=== PATIENT | female | born 1995 | race Caucasian/White ===

== ENCOUNTER 2016-12-17 02:45 | Emergency (ER) | payer MEDICAID ==
[~2016-12-17] VITALS: Ht 154.9 cm; Wt 104.3 kg
[~2016-12-17 02:45] MED LIST: BACTRIM DS 8001 TA1 PO; BENADRYL 25MG C25 MG PO; BENZONATATE100 MG PO; DICLEGIS1 TCP PO; FLINTSTONES1 CTB PO; HYDROCODONE/ACE1 TA5 PO; IBUPROFEN400 MG PO; KEFLEX 500MG.500 MG PO; LABETALOL 100M100 M1 PO; MEDROL 4MG. DOSE4 MG PO; NOMEDS; NOMEDS XX; PERCOCET 5/3251 EACH PO; PHENERGAN120 ML/BOT PO; PREDNISONE 20MG20 MG PO; TYLENOL ES500 MG PO; ZOFRAN4 MG PO; [UNRECOGNIZED DRUG - OTHER] PO
[2016-12-17 03:10] LABS: URINE BILIRUBIN - DIPSTICK NEGATIVE (NEG); URINE BLOOD TRACE-LYSED (NEG)
[2016-12-17 03:18] LABS: AMPHETAMINES/METAMPHETAMINES NEGATIVE ng/mL (<1000)
--- NOTE | 2016-12-17 03:29 | Emergency Room Report ---
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 PT STATES THAT IT STARTED A HEADACHE AND SHE HAD SOME BLURRED VISION AND SHE BECAME VERY ANXIOUS. PT STATES SHE HAS ALSO HAD SOME NAUSEA AND DIARRHEA. Onset of symptoms date/time:12/17/16 or onset unknown for: Treatment Prior to Arrival: PT TRANSPORTED TO ED BY EMS. 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 N Clinical Suspician of Infection? N Mental Status: 1 - Regular (Normal Baseline) Sepsis Risk:Low Sepsis Risk Have you (or family members/close friends) recently traveled outside the [place]? N If Yes, where/when: Have you had exposure to infectious disease within the past month? N TB? Other? Specify: Source patient, RN notes reviewed, EMS, old records Exam Limitations no limitations Comment pt with lt sided lyons with no fever which started this am with feeling of anxiety - no syncope or loc and no fever or neuro sx Cardiac Chest Pain Chest pain indicative of cardiac No Timing/Duration this evening Severity moderate ALLERGIES Coded Allergies: No Known Allergies (12/17/16) Home Medications Reported Medications No Known Home Medications History Medical History General CAD? No Angina: No [place]: No Hypertension? Yes Hyperlipidemia? No CHF? No DVT? No PE? No COPD? No Asthma? No Anemia? No GERD? No Gastric ulcers? No GI Bleed? No Hernia? No Thyroid Problems? No Hypothyroidism? No CVA? No Seizures? No Diabetes? No Renal Insuffiency? No End Stage Renal Disease? No UTI? No Stones? No BPH? No GB Disease: Yes Nephritic Syndrome? No Asplenia? No Hepatitis? No Sickle Cell Disease? No Arthritis? No Migraines? No Cataracts? No Glaucoma? No MRSA? No HIV? No TB? No Anxiety? No Depression? No Cancer? No More? 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 Respiratory denies cough, denies shortness of breath, denies wheezing Cardiovascular denies chest pain, denies syncope Gastrointestinal denies abdominal pain, denies diarrhea, denies vomiting Genitourinary denies: dysuria, frequency, hesitancy, hematuria. Musculoskeletal denies back pain, denies joint pain, denies joint swelling, denies neck pain Skin denies rash Psychiatric/Neurological denies headache, denies seizure Physical Exam Vital Signs Vital Signs Date Time Temp Pulse Resp B/P Pulse O2 O2 Flow FiO2 Ox Delivery Rate 12/17 0431 103 18 137/78 98 12/17 0342 106 18 106/68 100 12/17 0247 99.0 116 18 157/135 100 - WBC >12,000 or <4,000 or 10% bands? 2 or more SIRS Criteria Met? B/P:137/78 MAP:142 Creatinine >2.0? UA output<0.5ml/kg/hr for 2 hrs? Platelet count >100,000? Lactate >2.0mmol/1? INR >1.2 or PTT > than 60 sec? Evidence of Organ Dysfunction? Provider documented clinical suspician of infection? N Sepsis Criteria Count: 1 Sepsis Risk: Low Sepsis Risk General Appearance no apparent distress Eye Exam - bilateral eye PERRL, bilateral eye EOMI Ear, Nose, Throat normal ENT inspection Neck supple Respiratory Status No: respiratory distress. Lung Sounds bilateral: lungs clear. 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 No Results/Orders Laboratory Tests 12/17/16 0405: Sodium 140, Potassium 3.6, Chloride 104, Carbon Dioxide 27, BUN 14, Creatinine 0.8, Estimated Creat Clear 180, Estimated GFR (MDRD) 89, Glucose 112 H, Calcium 9.2, Total Bilirubin 0.1 L, AST 15, ALT 28, Alkaline Phosphatase 91, Creatine Kinase 59, CK-MB (CK-2) Rel Index 0.8, CK and CKMB Interp < 0.5, Troponin I < 0.02, Total Protein 8.0, Albumin 3.5, Globulin 4.5 H, Albumin/Globulin Ratio 0.8 L, WBC 13.0 H, RBC 4.68, Hgb 12.0 L, Hct 35.9 L, MCV 76.8 L, RDW 16.1, Plt Count 444 H, Gran % 76.4, Gran # 9.9 H, Lymphocytes % 19.3, Monocytes % 4.3, Lymphocytes # 2.5, Monocytes # 0.6, PUBS MCHC 33.4, MCH 25.6 L 12/17/16 0301: Opiates Screen NEGATIVE, Urine Methadone Screen NEGATIVE, Barbiturates NEGATIVE, Phencyclidine Screen NEGATIVE, Amphetamines Screen NEGATIVE, Benzodiazepines Screen NEGATIVE, Cocaine Screen NEGATIVE, Marijuana (THC) Screen NEGATIVE, Urine Color YELLOW, Urine Appearance CLEAR, Urine pH 6.0, Ur Specific [place] >= 1.030 , Urine Protein TRACE H, Urine Ketones NEGATIVE, Urine Blood TRACE-LYSED, Urine Nitrate NEGATIVE, Urine Bilirubin NEGATIVE, Urine Urobilinogen 0.2, Ur Leukocyte Esterase 2+ H, Urine RBC 3-5, Urine WBC 5-10, Amorphous Sediment OCC, Urine Bacteria 1+, Urine Mucus 1+, Urine Glucose NEGATIVE Current Medication Orders Sig/Fred Start time Last Medication Dose Route Stop Time Status Admin Sodium Chloride 1,000 ML .Q1H1M 12/17 0315 DC IV 12/17 0415 Sodium Chloride 10 ML PRN PRN 12/17 0315 AC IV 12/18 030 Sodium Chloride 1,000 ML .STK-MED ONE 12/17 030 DC IV Sodium Chloride 10 ML PRN PRN 12/17 0300 AC IV 12/18 255 Orders Procedure Date/time Status CULTURE, URINE 12/17 300 Active ELECTROCARDIOGRAM REQUEST 12/17 255 Active IV SALINE LOCK 12/17 255 Active URINALYSIS/COMPLETE 01/18 0256 Complete URINE 12/17 255 Complete DRUG ABUSE SCREEN (TRIAGE) 12/17 255 Complete CBC WITH AUTO DIFF 12/17 255 Complete CARDIAC ENZYMES 12/17 255 Complete CHEM 12 PROFILE 12/17 255 Complete 12 LEAD EKG-LALITHA (INITIAL) 12/17 UNK Active 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 ST/Twave chgs Departure Departure Time of Disposition 0641 Disposition DC Home or Self Care(routine) Clinical Impression Primary Impression: Headache Qualifiers: Headache type: unspecified Headache chronicity pattern: acute headache Intractability: not intractable Qualified Code: R51 - Headache Secondary Impressions: UTI (urinary tract infection) Qualifiers: Urinary tract infection type: acute cystitis Hematuria presence: without hematuria Qualified Code: N30.00 - Acute cystitis without hematuria Condition STABLE Referrals Raz Smith MD (Family) Patient Instructions DI for Urinary Tract Infection (UTI) Additional Instructions fluids and see pcp for follow up and call about urine culture Discharge Counseling Counseled pt/family regarding diagnosis, test results, medications/RX, follow up needs Prescriptions Current Visit Scripts Ciprofloxacin HCl (Cipro 500MG TAB) 500 MG PO BID #14 TAB ED Critical Care Critical Care No at 0702
--- NOTE | 2016-12-17 03:29 | Emergency Room Report ---
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 PT STATES THAT IT STARTED A HEADACHE AND SHE HAD SOME BLURRED VISION AND SHE BECAME VERY ANXIOUS. PT STATES SHE HAS ALSO HAD SOME NAUSEA AND DIARRHEA. Onset of symptoms date/time:12/17/16 or onset unknown for: Treatment Prior to Arrival: PT TRANSPORTED TO ED BY EMS. 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 N Clinical Suspician of Infection? N Mental Status: 1 - Regular (Normal Baseline) Sepsis Risk:Low Sepsis Risk Have you (or family members/close friends) recently traveled outside the [place]? N If Yes, where/when: Have you had exposure to infectious disease within the past month? N TB? Other? Specify: Source patient, RN notes reviewed, EMS, old records Exam Limitations no limitations Comment pt with lt sided lyons with no fever which started this am with feeling of anxiety - no syncope or loc and no fever or neuro sx Cardiac Chest Pain Chest pain indicative of cardiac No Timing/Duration this evening Severity moderate ALLERGIES Coded Allergies: No Known Allergies (12/17/16) Home Medications Reported Medications No Known Home Medications History Medical History General CAD? No Angina: No [place]: No Hypertension? Yes Hyperlipidemia? No CHF? No DVT? No PE? No COPD? No Asthma? No Anemia? No GERD? No Gastric ulcers? No GI Bleed? No Hernia? No Thyroid Problems? No Hypothyroidism? No CVA? No Seizures? No Diabetes? No Renal Insuffiency? No End Stage Renal Disease? No UTI? No Stones? No BPH? No GB Disease: Yes Nephritic Syndrome? No Asplenia? No Hepatitis? No Sickle Cell Disease? No Arthritis? No Migraines? No Cataracts? No Glaucoma? No MRSA? No HIV? No TB? No Anxiety? No Depression? No Cancer? No More? 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 Respiratory denies cough, denies shortness of breath, denies wheezing Cardiovascular denies chest pain, denies syncope Gastrointestinal denies abdominal pain, denies diarrhea, denies vomiting Genitourinary denies: dysuria, frequency, hesitancy, hematuria. Musculoskeletal denies back pain, denies joint pain, denies joint swelling, denies neck pain Skin denies rash Psychiatric/Neurological denies headache, denies seizure Physical Exam Vital Signs Vital Signs Date Time Temp Pulse Resp B/P Pulse O2 O2 Flow FiO2 Ox Delivery Rate 12/17 0431 103 18 137/78 98 12/17 0342 106 18 106/68 100 12/17 0247 99.0 116 18 157/135 100 - WBC >12,000 or <4,000 or 10% bands? 2 or more SIRS Criteria Met? B/P:137/78 MAP:142 Creatinine >2.0? UA output<0.5ml/kg/hr for 2 hrs? Platelet count >100,000? Lactate >2.0mmol/1? INR >1.2 or PTT > than 60 sec? Evidence of Organ Dysfunction? Provider documented clinical suspician of infection? N Sepsis Criteria Count: 1 Sepsis Risk: Low Sepsis Risk General Appearance no apparent distress Eye Exam - bilateral eye PERRL, bilateral eye EOMI Ear, Nose, Throat normal ENT inspection Neck supple Respiratory Status No: respiratory distress. Lung Sounds bilateral: lungs clear. 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 No Results/Orders Laboratory Tests 12/17/16 0405: Sodium 140, Potassium 3.6, Chloride 104, Carbon Dioxide 27, BUN 14, Creatinine 0.8, Estimated Creat Clear 180, Estimated GFR (MDRD) 89, Glucose 112 H, Calcium 9.2, Total Bilirubin 0.1 L, AST 15, ALT 28, Alkaline Phosphatase 91, Creatine Kinase 59, CK-MB (CK-2) Rel Index 0.8, CK and CKMB Interp < 0.5, Troponin I < 0.02, Total Protein 8.0, Albumin 3.5, Globulin 4.5 H, Albumin/Globulin Ratio 0.8 L, WBC 13.0 H, RBC 4.68, Hgb 12.0 L, Hct 35.9 L, MCV 76.8 L, RDW 16.1, Plt Count 444 H, Gran % 76.4, Gran # 9.9 H, Lymphocytes % 19.3, Monocytes % 4.3, Lymphocytes # 2.5, Monocytes # 0.6, PUBS MCHC 33.4, MCH 25.6 L 12/17/16 0301: Opiates Screen NEGATIVE, Urine Methadone Screen NEGATIVE, Barbiturates NEGATIVE, Phencyclidine Screen NEGATIVE, Amphetamines Screen NEGATIVE, Benzodiazepines Screen NEGATIVE, Cocaine Screen NEGATIVE, Marijuana (THC) Screen NEGATIVE, Urine Color YELLOW, Urine Appearance CLEAR, Urine pH 6.0, Ur Specific [place] >= 1.030 , Urine Protein TRACE H, Urine Ketones NEGATIVE, Urine Blood TRACE-LYSED, Urine Nitrate NEGATIVE, Urine Bilirubin NEGATIVE, Urine Urobilinogen 0.2, Ur Leukocyte Esterase 2+ H, Urine RBC 3-5, Urine WBC 5-10, Amorphous Sediment OCC, Urine Bacteria 1+, Urine Mucus 1+, Urine Glucose NEGATIVE Current Medication Orders Sig/Fred Start time Last Medication Dose Route Stop Time Status Admin Sodium Chloride 1,000 ML .Q1H1M 12/17 0315 DC IV 12/17 0415 Sodium Chloride 10 ML PRN PRN 12/17 0315 AC IV 12/18 030 Sodium Chloride 1,000 ML .STK-MED ONE 12/17 030 DC IV Sodium Chloride 10 ML PRN PRN 12/17 0300 AC IV 12/18 255 Orders Procedure Date/time Status CULTURE, URINE 12/17 300 Active ELECTROCARDIOGRAM REQUEST 12/17 255 Active IV SALINE LOCK 12/17 255 Active URINALYSIS/COMPLETE 01/18 0256 Complete URINE 12/17 255 Complete DRUG ABUSE SCREEN (TRIAGE) 12/17 255 Complete CBC WITH AUTO DIFF 12/17 255 Complete CARDIAC ENZYMES 12/17 255 Complete CHEM 12 PROFILE 12/17 255 Complete 12 LEAD EKG-LALITHA (INITIAL) 12/17 UNK Active 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 ST/Twave chgs Departure Departure Time of Disposition 0641 Disposition DC Home or Self Care(routine) Clinical Impression Primary Impression: Headache Qualifiers: Headache type: unspecified Headache chronicity pattern: acute headache Intractability: not intractable Qualified Code: R51 - Headache Secondary Impressions: UTI (urinary tract infection) Qualifiers: Urinary tract infection type: acute cystitis Hematuria presence: without hematuria Qualified Code: N30.00 - Acute cystitis without hematuria Condition STABLE Referrals Raz Smith MD (Family) Patient Instructions DI for Urinary Tract Infection (UTI) Additional Instructions fluids and see pcp for follow up and call about urine culture Discharge Counseling Counseled pt/family regarding diagnosis, test results, medications/RX, follow up needs Prescriptions Current Visit Scripts Ciprofloxacin HCl (Cipro 500MG TAB) 500 MG PO BID #14 TAB ED Critical Care Critical Care No at 0702
[2016-12-17 04:26] LABS: LYMPH # 2.5 K/mm3 (0.7-4.5); LYMPH % 19.3 % (10-50.0)
[2016-12-17 04:42] LABS: BUN 14 mg/dL (7-18); GFR (ESTIMATED) 89 ML/MIN (59-)
[2016-12-17] MEDS ORDERED: CIPRO 500MG TA500 MG PO (07:01)
[2016-12-17] MEDS ORDERED: KEFLEX 500MG.500 MG PO (07:13)
[2016-12-17 07:26] VITALS: BP 136/97
[2016-12-18] MEDS ORDERED: NEIGHBOR PO (04:58)
[2016-12-18] MEDS ORDERED: INDERAL20 MG PO (14:02)
== END 2016-12-17 07:37 | disposition home or self-care (01) ==
LOC: ER 02:45
PROVIDERS: Emergency Medicine
DX: R51 Headache (principal); N30.00 Acute cystitis without hematuria; R00.0 Tachycardia, unspecified; I10 Essential (primary) hypertension

== ENCOUNTER 2017-01-07 03:06 | Emergency (ER) | payer MEDICAID ==
[~2017-01-07] VITALS: Ht 154.9 cm; Wt 102.1 kg
[~2017-01-07 03:06] MED LIST changes: +CIPRO 500MG TA500 MG PO; +INDERAL20 MG PO; +NEIGHBOR PO
[2017-01-07 03:36] LABS: HEMOGLOBIN 12.5 g/dL (12.2-16.2); LYMPH # 3.6 K/mm3 (0.7-4.5); LYMPH % 30.4 % (10-50.0)
[2017-01-07 03:59] LABS: BUN 10 mg/dL (7-18)
[2017-01-07 04:00] LABS: GFR (ESTIMATED) 104 ML/MIN (59-)
--- NOTE | 2017-01-07 04:12 | Emergency Room Report ---
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 N Clinical Suspician of Infection? N Mental Status: 1 - Regular (Normal Baseline) Sepsis Risk:Low Sepsis Risk Have you (or family members/close friends) recently traveled outside the [place]? N If Yes, where/when: Have you had exposure to infectious disease within the past month? N TB? Other? Specify: Source patient, RN notes reviewed, EMS, old records Exam Limitations no limitations Comment rt sided chest pain with assoc feeling of sob and dizzyness - has had before and has seen card Cardiac Chest Pain Chest pain indicative of cardiac No Timing/Duration this evening Severity moderate ALLERGIES Coded Allergies: tuberculin, purified protein deriva (12/18/16) Home Medications Active Scripts Propranolol Hcl (Inderal) 20 MG PO BID #60 TAB Prov: 12/18/16 Reported Medications Ibuprofen 200 MG PO Q6HP PRN PAIN History Medical History General CAD? No Angina: No [place]: No Hypertension? Yes Hyperlipidemia? No CHF? No DVT? No PE? No COPD? No Asthma? No Anemia? No GERD? No Gastric ulcers? No GI Bleed? No Hernia? No Thyroid Problems? No Hypothyroidism? No CVA? No Seizures? No Diabetes? No Renal Insuffiency? No End Stage Renal Disease? No UTI? No Stones? No BPH? No GB Disease: Yes Nephritic Syndrome? No Asplenia? No Hepatitis? No Sickle Cell Disease? No Arthritis? No Migraines? No Cataracts? No Glaucoma? No MRSA? No HIV? No TB? No Anxiety? No Depression? No Cancer? No More? 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 Respiratory see HPI, denies cough, shortness of breath, denies wheezing Cardiovascular see HPI, chest pain, denies palpitations, denies syncope Gastrointestinal denies abdominal pain, denies nausea, denies vomiting Genitourinary denies: dysuria, frequency, hesitancy, hematuria. Musculoskeletal denies back pain, denies joint pain, denies joint swelling, denies neck pain Skin denies rash Psychiatric/Neurological denies headache, denies seizure Physical Exam Vital Signs Vital Signs Date Time Temp Pulse Resp B/P Pulse O2 O2 Flow FiO2 Ox Delivery Rate 01/07 0444 59 16 136/70 97 01/07 0406 98.7 58 16 121/72 97 01/07 0307 98.7 61 16 149/106 99 - WBC >12,000 or <4,000 or 10% bands? 2 or more SIRS Criteria Met? B/P:121/72 MAP:120 Creatinine >2.0? UA output<0.5ml/kg/hr for 2 hrs? Platelet count >100,000? Lactate >2.0mmol/1? INR >1.2 or PTT > than 60 sec? Evidence of Organ Dysfunction? Provider documented clinical suspician of infection? N Sepsis Criteria Count: 0 Sepsis Risk: Low Sepsis Risk General Appearance no apparent distress Eye Exam - bilateral eye PERRL, bilateral eye EOMI Ear, Nose, Throat normal ENT inspection Neck supple Respiratory Status No: respiratory distress. Lung Sounds bilateral: lungs clear. 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 No Results/Orders Laboratory Tests 01/07/17 0325: Sodium 140, Potassium 3.3 L, Chloride 106, Carbon Dioxide 20 L, BUN 10, Creatinine 0.7, Estimated Creat Clear 201 H, Estimated GFR (MDRD) 104, Glucose 105, Calcium 8.8, Total Bilirubin 0.3, AST 23, ALT 37, Alkaline Phosphatase 94, Creatine Kinase 54, CK-MB (CK-2) Rel Index 0.9, CK and CKMB Interp < 0.5, Troponin I < 0.02, Total Protein 7.5, Albumin 3.4, Globulin 4.1 H, Albumin/ Globulin Ratio 0.8 L, WBC 11.9 H, RBC 4.53, Hgb 12.5, Hct 35.0 L, MCV 77.3 L , RDW 14.3, Plt Count 476 H, MPV 6.1 L, Gran % 60.9, Gran # 7.3, Lymphocytes % 30.4, Monocytes % 6.1, Eosinophils % 2.3, Basophils % 0.3, Lymphocytes # 3.6, Monocytes # 0.7, Eosinophils # 0.3, Basophils # 0.0, PUBS MCHC 35.7 H, MCH 27.6 Current Medication Orders Sig/Fred Start time Last Medication Dose Route Stop Time Status Admin Sodium Chloride 10 ML PRN PRN 01/07 330 AC IV 01/08 316 Orders Procedure Date/time Status ELECTROCARDIOGRAM REQUEST 01/07 319 Active CHEST-PORTABLE 01/07 319 Active IV SALINE LOCK 01/07 319 Active CBC WITH AUTO DIFF 01/07 319 Complete CARDIAC ENZYMES 01/07 319 Complete CHEM 12 PROFILE 01/07 319 Complete 12 LEAD EKG-LALITHA (INITIAL) 01/07 UNK Active 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 of ischemic chgs XRAY/CT/US XRAY/CT/US XRAY chest XR interpretation by reviewed by me Xray Results normal/NAD Departure Departure Time of Disposition 433 Disposition DC Home or Self Care(routine) Clinical Impression Primary Impression: Chest pain Qualifiers: Chest pain type: unspecified Qualified Code: R07.9 - Chest pain, unspecified Condition STABLE Referrals Abiel Jose (Family) Patient Instructions DI for Atypical Chest Pain Additional Instructions see pcp for follow up Discharge Counseling Counseled pt/family regarding diagnosis, test results, follow up needs ED Critical Care Critical Care No at 0458
--- NOTE | 2017-01-07 04:12 | Emergency Room Report ---
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 N Clinical Suspician of Infection? N Mental Status: 1 - Regular (Normal Baseline) Sepsis Risk:Low Sepsis Risk Have you (or family members/close friends) recently traveled outside the [place]? N If Yes, where/when: Have you had exposure to infectious disease within the past month? N TB? Other? Specify: Source patient, RN notes reviewed, EMS, old records Exam Limitations no limitations Comment rt sided chest pain with assoc feeling of sob and dizzyness - has had before and has seen card Cardiac Chest Pain Chest pain indicative of cardiac No Timing/Duration this evening Severity moderate ALLERGIES Coded Allergies: tuberculin, purified protein deriva (12/18/16) Home Medications Active Scripts Propranolol Hcl (Inderal) 20 MG PO BID #60 TAB Prov: 12/18/16 Reported Medications Ibuprofen 200 MG PO Q6HP PRN PAIN History Medical History General CAD? No Angina: No [place]: No Hypertension? Yes Hyperlipidemia? No CHF? No DVT? No PE? No COPD? No Asthma? No Anemia? No GERD? No Gastric ulcers? No GI Bleed? No Hernia? No Thyroid Problems? No Hypothyroidism? No CVA? No Seizures? No Diabetes? No Renal Insuffiency? No End Stage Renal Disease? No UTI? No Stones? No BPH? No GB Disease: Yes Nephritic Syndrome? No Asplenia? No Hepatitis? No Sickle Cell Disease? No Arthritis? No Migraines? No Cataracts? No Glaucoma? No MRSA? No HIV? No TB? No Anxiety? No Depression? No Cancer? No More? 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 Respiratory see HPI, denies cough, shortness of breath, denies wheezing Cardiovascular see HPI, chest pain, denies palpitations, denies syncope Gastrointestinal denies abdominal pain, denies nausea, denies vomiting Genitourinary denies: dysuria, frequency, hesitancy, hematuria. Musculoskeletal denies back pain, denies joint pain, denies joint swelling, denies neck pain Skin denies rash Psychiatric/Neurological denies headache, denies seizure Physical Exam Vital Signs Vital Signs Date Time Temp Pulse Resp B/P Pulse O2 O2 Flow FiO2 Ox Delivery Rate 01/07 0444 59 16 136/70 97 01/07 0406 98.7 58 16 121/72 97 01/07 0307 98.7 61 16 149/106 99 - WBC >12,000 or <4,000 or 10% bands? 2 or more SIRS Criteria Met? B/P:121/72 MAP:120 Creatinine >2.0? UA output<0.5ml/kg/hr for 2 hrs? Platelet count >100,000? Lactate >2.0mmol/1? INR >1.2 or PTT > than 60 sec? Evidence of Organ Dysfunction? Provider documented clinical suspician of infection? N Sepsis Criteria Count: 0 Sepsis Risk: Low Sepsis Risk General Appearance no apparent distress Eye Exam - bilateral eye PERRL, bilateral eye EOMI Ear, Nose, Throat normal ENT inspection Neck supple Respiratory Status No: respiratory distress. Lung Sounds bilateral: lungs clear. 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 No Results/Orders Laboratory Tests 01/07/17 0325: Sodium 140, Potassium 3.3 L, Chloride 106, Carbon Dioxide 20 L, BUN 10, Creatinine 0.7, Estimated Creat Clear 201 H, Estimated GFR (MDRD) 104, Glucose 105, Calcium 8.8, Total Bilirubin 0.3, AST 23, ALT 37, Alkaline Phosphatase 94, Creatine Kinase 54, CK-MB (CK-2) Rel Index 0.9, CK and CKMB Interp < 0.5, Troponin I < 0.02, Total Protein 7.5, Albumin 3.4, Globulin 4.1 H, Albumin/ Globulin Ratio 0.8 L, WBC 11.9 H, RBC 4.53, Hgb 12.5, Hct 35.0 L, MCV 77.3 L , RDW 14.3, Plt Count 476 H, MPV 6.1 L, Gran % 60.9, Gran # 7.3, Lymphocytes % 30.4, Monocytes % 6.1, Eosinophils % 2.3, Basophils % 0.3, Lymphocytes # 3.6, Monocytes # 0.7, Eosinophils # 0.3, Basophils # 0.0, PUBS MCHC 35.7 H, MCH 27.6 Current Medication Orders Sig/Fred Start time Last Medication Dose Route Stop Time Status Admin Sodium Chloride 10 ML PRN PRN 01/07 330 AC IV 01/08 316 Orders Procedure Date/time Status ELECTROCARDIOGRAM REQUEST 01/07 319 Active CHEST-PORTABLE 01/07 319 Active IV SALINE LOCK 01/07 319 Active CBC WITH AUTO DIFF 01/07 319 Complete CARDIAC ENZYMES 01/07 319 Complete CHEM 12 PROFILE 01/07 319 Complete 12 LEAD EKG-LALITHA (INITIAL) 01/07 UNK Active CM/EKG CM/photo 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 of ischemic chgs XRAY/CT/US XRAY/CT/US XRAY chest XR interpretation by reviewed by me Xray Results normal/NAD Departure Departure Time of Disposition 433 Disposition DC Home or Self Care(routine) Clinical Impression Primary Impression: Chest pain Qualifiers: Chest pain type: unspecified Qualified Code: R07.9 - Chest pain, unspecified Condition STABLE Referrals Abiel Jose (Family) Patient Instructions DI for Atypical Chest Pain Additional Instructions see pcp for follow up Discharge Counseling Counseled pt/family regarding diagnosis, test results, follow up needs ED Critical Care Critical Care No at 0454
[2017-01-07 05:24] VITALS: BP 136/70
--- NOTE | 2017-01-07 08:04 | RADIOLOGY REPORT PS360 ---
CHEST-PORTABLE HISTORY: Chest pain CP ORDERING PHYSICIAN: Bj Alarcon MD PATIENT AGE: 21 years COMPARISON: 12/18/2016 FINDINGS: The cardiomediastinal silhouette and pulmonary vascularity are within normal limits. The lungs are clear without infiltrates, suspicious nodules, or pleural effusions. No acute bony abnormalities. IMPRESSION: Negative chest, no acute finding
== END 2017-01-07 05:24 | disposition home or self-care (01) ==
LOC: ER 03:06
PROVIDERS: Emergency Medicine
DX: R07.9 Chest pain, unspecified (principal)

== ENCOUNTER → 2017-01-13 | Outpatient (CLI) | payer MEDICAID ==
--- NOTE | 2017-01-13 12:16 | RADIOLOGY REPORT PS360 ---
CTA-CHEST HISTORY: PALPITATIONS,HTN,DYSPNEA,ABN. EKG,R/O PE ORDERING PHYSICIAN: Bam Mayo MD PATIENT AGE: 21 years TECHNIQUE: Helical acquisition obtained following the bolus administration of 60 mL of Isovue 370 followed by a saline bolus. Axial, sagittal, and coronal reformatted images are generated and reviewed. COMPARISON: None FINDINGS: No evidence of aortic aneurysm or dissection. No pulmonary embolus apparent. There is a calcified granuloma in the right upper lobe. A 3 mm nodules present in the subpleural region in the right upper lobe laterally no lobar consolidation or collapse. No effusions. Upper abdominal images are unremarkable. IMPRESSION: 1. No evidence of aortic aneurysm or pulmonary embolus. 2. No acute finding. 3. Calcified granuloma right upper lobe with a noncalcified 3 mm subpleural nodular density in the right upper lobe as well.
== END ==
LOC: RAD 10:30
DX: R00.2 Palpitations (principal); R06.00 Dyspnea, unspecified; R94.31 Abnormal electrocardiogram [ECG] [EKG]; I10 Essential (primary) hypertension
CPT/HCPCS: Q9967

== ENCOUNTER 2017-01-19 09:00 | Outpatient (CLI) | payer MEDICAID | END 2017-01-19 09:30 | disposition home or self-care (01) | LOC: COP 09:00 | DX: Z45.2 Encounter for adjustment and management of vascular access device (principal) ==

== ENCOUNTER 2017-10-23 00:39 | Emergency (ER) | payer MEDICAID ==
[~2017-10-23] VITALS: Ht 154.9 cm; Wt 113.4 kg
[2017-10-23] MEDS ORDERED: QVAR8.7 G1 IH (01:00)
[2017-10-23] MEDS ORDERED: SUNMARK OMEPRAZ20 MG PO (01:01)
[2017-10-23] MEDS ORDERED: ZOLOFT25 MG PO (01:02)
[2017-10-23] MEDS ORDERED: ZYRTEC10 M2 PO (01:02)
[2017-10-23] MEDS ORDERED: SINGULAIR10 MG PO (01:03)
--- NOTE | 2017-10-23 01:07 | Emergency Room Report ---
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 Y Clinical Suspician of Infection? N Mental Status: 1 - Regular (Normal Baseline) Sepsis Risk:Low Sepsis Risk Have you (or family members/close friends) recently traveled outside the [place]? N If Yes, where/when: Have you had exposure to infectious disease within the past month? N TB? Other? Specify: Source patient, RN notes reviewed, old records Exam Limitations no limitations Comment rash on hands/feet over the last few days with no fever but has local irritation Cardiac Chest Pain Chest pain indicative of cardiac No Timing/Duration this evening Severity moderate ALLERGIES Coded Allergies: Mushroom (Severe, [id number]/THROAT 10/23/17) mold (Intermediate, 10/23/17) tuberculin, purified protein deriva (12/18/16) Home Medications Active Scripts Propranolol Hcl (Inderal) 20 MG PO BID #60 TAB Prov: 12/18/16 Reported Medications Ibuprofen 200 MG PO Q6HP PRN PAIN Beclomethasone Dipropionate (QVAR) 8.7 GM IH BID Omeprazole 20 MG PO DAILY Sertraline Hcl (Zoloft 25MG) 25 MG PO DAILY History Medical History General CAD? No Angina: No [place]: No Hypertension? Yes Hyperlipidemia? No CHF? No DVT? No PE? No COPD? No Asthma? Yes Anemia? No GERD? No Gastric ulcers? No GI Bleed? No Hernia? No Thyroid Problems? No Hypothyroidism? No CVA? No Seizures? No Diabetes? No Renal Insuffiency? No End Stage Renal Disease? No UTI? No Stones? No BPH? No GB Disease: Yes Nephritic Syndrome? No Asplenia? No Hepatitis? No Sickle Cell Disease? No Arthritis? No Migraines? No Cataracts? No Glaucoma? No MRSA? No HIV? No TB? No Anxiety? No Depression? No Cancer? No More? 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 Respiratory denies cough, denies shortness of breath, denies wheezing Cardiovascular denies chest pain, denies palpitations, denies syncope Gastrointestinal denies abdominal pain, denies diarrhea, denies vomiting Genitourinary denies: dysuria, frequency, hesitancy, hematuria. Musculoskeletal denies back pain, denies joint pain, denies joint swelling, denies neck pain Skin see HPI, rash Psychiatric/Neurological denies headache, denies seizure Physical Exam Vital Signs Vital Signs Date Time Temp Pulse Resp B/P Pulse O2 O2 Flow FiO2 Ox Delivery Rate 10/23 0050 98.0 77 18 98 10/23 0049 98.0 84 14 99 - WBC >12,000 or <4,000 or 10% bands? 2 or more SIRS Criteria Met? B/P:124/ MAP:100 Creatinine >2.0? UA output<0.5ml/kg/hr for 2 hrs? Platelet count >100,000? Lactate >2.0mmol/1? INR >1.2 or PTT > than 60 sec? Evidence of Organ Dysfunction? Provider documented clinical suspician of infection? N Sepsis Criteria Count: 1 Sepsis Risk: Low Sepsis Risk General Appearance no apparent distress Eye Exam - bilateral eye PERRL, bilateral eye EOMI Ear, Nose, Throat normal ENT inspection Neck non-tender Respiratory Status No: respiratory distress. 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 No Departure Departure Time of Disposition 0102 Disposition DC Home or Self Care(routine) Clinical Impression Primary Impression: Hand, foot and mouth disease Condition STABLE Patient Instructions DI for Hand, Foot, and Mouth Disease-Child Additional Instructions advil/tyenol and see pcp as needed for follow up Discharge Counseling Counseled pt/family regarding diagnosis, follow up needs ED Critical Care Critical Care No at 0100
--- NOTE | 2017-10-23 01:07 | Emergency Room Report ---
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 Y Clinical Suspician of Infection? N Mental Status: 1 - Regular (Normal Baseline) Sepsis Risk:Low Sepsis Risk Have you (or family members/close friends) recently traveled outside the [place]? N If Yes, where/when: Have you had exposure to infectious disease within the past month? N TB? Other? Specify: Source patient, RN notes reviewed, old records Exam Limitations no limitations Comment rash on hands/feet over the last few days with no fever but has local irritation Cardiac Chest Pain Chest pain indicative of cardiac No Timing/Duration this evening Severity moderate ALLERGIES Coded Allergies: Mushroom (Severe, O-[id number]/THROAT 10/23/17) mold (Intermediate, 10/23/17) tuberculin, purified protein deriva (12/18/16) Home Medications Active Scripts Propranolol Hcl (Inderal) 20 MG PO BID #60 TAB Prov: 12/18/16 Reported Medications Ibuprofen 200 MG PO Q6HP PRN PAIN Beclomethasone Dipropionate (QVAR) 8.7 GM IH BID Omeprazole 20 MG PO DAILY Sertraline Hcl (Zoloft 25MG) 25 MG PO DAILY History Medical History General CAD? No Angina: No [place]: No Hypertension? Yes Hyperlipidemia? No CHF? No DVT? No PE? No COPD? No Asthma? Yes Anemia? No GERD? No Gastric ulcers? No GI Bleed? No Hernia? No Thyroid Problems? No Hypothyroidism? No CVA? No Seizures? No Diabetes? No Renal Insuffiency? No End Stage Renal Disease? No UTI? No Stones? No BPH? No GB Disease: Yes Nephritic Syndrome? No Asplenia? No Hepatitis? No Sickle Cell Disease? No Arthritis? No Migraines? No Cataracts? No Glaucoma? No MRSA? No HIV? No TB? No Anxiety? No Depression? No Cancer? No More? 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 Respiratory denies cough, denies shortness of breath, denies wheezing Cardiovascular denies chest pain, denies palpitations, denies syncope Gastrointestinal denies abdominal pain, denies diarrhea, denies vomiting Genitourinary denies: dysuria, frequency, hesitancy, hematuria. Musculoskeletal denies back pain, denies joint pain, denies joint swelling, denies neck pain Skin see HPI, rash Psychiatric/Neurological denies headache, denies seizure Physical Exam Vital Signs Vital Signs Date Time Temp Pulse Resp B/P Pulse O2 O2 Flow FiO2 Ox Delivery Rate 10/23 0050 98.0 77 18 98 10/23 0049 98.0 84 14 99 - WBC >12,000 or <4,000 or 10% bands? 2 or more SIRS Criteria Met? B/P:124/ MAP:100 Creatinine >2.0? UA output<0.5ml/kg/hr for 2 hrs? Platelet count >100,000? Lactate >2.0mmol/1? INR >1.2 or PTT > than 60 sec? Evidence of Organ Dysfunction? Provider documented clinical suspician of infection? N Sepsis Criteria Count: 1 Sepsis Risk: Low Sepsis Risk General Appearance no apparent distress Eye Exam - bilateral eye PERRL, bilateral eye EOMI Ear, Nose, Throat normal ENT inspection Neck non-tender Respiratory Status No: respiratory distress. 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 No Departure Departure Time of Disposition 0102 Disposition DC Home or Self Care(routine) Clinical Impression Primary Impression: Hand, foot and mouth disease Condition STABLE Patient Instructions DI for Hand, Foot, and Mouth Disease-Child Additional Instructions advil/tyenol and see pcp as needed for follow up Discharge Counseling Counseled pt/family regarding diagnosis, follow up needs ED Critical Care Critical Care No at 0105
--- OUTSIDE RECORDS SUMMARY | 2017-10-23 01:08 | External Medical Summary Rpt | CCD ---
Author Author , DANIEL Organization DANIEL Address Unknown Phone Care Team Providers Care Vp Production Name Role Phone [facility] Unavailable Unavailable [place] CARSON BYRD Unavailable Unavailable web care [employer], Unavailable Unavailable [facility] Unavailable Unavailable SERVICE, [facility] UYEN GOODMAN Unavailable Unavailable KAITLIN RIVAS ANGIE, Unavailable Unavailable RIVAS ANGIE [place] Unavailable [facility]available [facility] Davon Quevedo MD, Unavailable Unavailable Davon NICOLAS, Unavailable Unavailable GHASSAN NICOLAS [facility] [place], Unavailable Unavailable PLLC, [facility] [place] Unavailable Unavailable HOSPITA, [facility]ITA HARPEL ZAIN, HARPEL Unavailable Unavailable ZAIN [facility] Unavailable Unavailable INC, [facility] Unavailable [facility]available HOSPITAL P, [facility] Unavailable Unavailable [facility], Unavailable Unavailable [facility] SWAPNA FERRELL MD, Unavailable Unavailable SWAPNA FERRELL MD [facility] Unavailable Unavailable GROUP PS, [facility] Unavailable Unavailable [facility], [facility], [facility]available Unavailable [facility], Unavailable Unavailable [facility], Unavailable Unavailable PLL[facility], [facility] Unavailable Unavailable LAB, [facility] OSIRIS REMY, OSIRIS REMY Unavailable Unavailable EVELYN TOD, EVELYN TOD Unavailable Unavailable [facility], [facility], Unavailable Unavailable [facility], Unavailable Unavailable RIC Garner Unavailable Unavailable Curt POND MD, III, MD [facility] Unavailable Unavailable [facility] [place], [facility] [place] Purpose Continuity of Care Document - 11-05-2011 through 2016 Problems Code Diagnosis DOS Provider Status J301 ALLERGIC 08-04-2017 [facility]IS [facility] DUE TO [place] POLLEN J3089 OTHER 08-04-2017 [facility] [place] J339 NASAL POLYP 08-04-2017 [facility] UNSPECIFIED [place] J4540 MODERATE 08-04-2017 [facility]SISTENT [facility] ASTHMA [place] UNCOMPLICAT ED K219 GASTRO-ESOP 08-04-2017 [facility] H REFLUX [facility] OF DISEASE [place] WITHOUT ESOPHAGITIS E585IQJ OTHER 08-04-2017 [facility] ADVERSE [facility] FOOD [place] REACTIONS NEC INITIAL ENCNTR N80596 ALLERGY TO 08-04-2017 [facility] OTHER FOODS PARTNERS [facility] [place] J029 ACUTE 06-29-2017 [facility] PHARYNGITIS PHYSICIAN GROUP UNSPECIFIED O16194 UNSPECIFIED 06-01-2017 [place] [facility] UNCOMPLICAT GROUP PS ED R109 UNSPECIFIED 06-01-2017 [place] ABDOMINAL ANESTHESIA PAIN GROUP PS R10.84 GENERALIZED 05-27-2017 ABDOMINAL PAIN M5386 OTHER 05-12-2017 [place] SPECIFIED [facility] DORSOPATHIE C CENTE S LUMBAR REGION M5413 RADICULOPAT 05-12-2017 [place] HY [facility] CERVICOTHOR C CENTE ACIC REGION M9906 SEGMENTAL & 05-12-2017 [place] [facility] DYSFUNCTION C CENTE LOWER EXTREMITY I10 ESSENTIAL 05-11-2017 [place] [facility] HYPERTENSIO N I499 CARDIAC 05-11-2017 [place] [facility] UNSPECIFIED J309 ALLERGIC 05-11-2017 [place] [facility] UNSPECIFIED J4520 MILD 05-11-2017 [place] [facility]EN [facility] T ASTHMA UNCOMPLICAT ED K649 UNSPECIFIED 05-11-2017 [facility] [facility] HEMORRHOIDS L509 URTICARIA 05-11-2017 [place] [facility]PEC[facility]IED [facility] R918 OTHER 05-05-2017 [facility] NONSPECIFIC PARTNERS OF ABNORMAL [place] FINDING OF LUNG FIELD R0602 SHORTNESS 04-07-2017 [place] [facility] BRE[facility] SERV [facility] R079 CHEST PAIN 04-07-2017 [place] [facility] U[facility]PEC[facility] SERV [facility] R1012 LEFT UPPER 03-20-2017 [facility]ANT PHYSICIAN PAIN GROUP R319 HEMATURIA 03-20-2017 [facility] UNSPECIFIED PHYSICIAN GROUP M549 DORSALGIA 03-18-2017 [place] UNSPECIFIED CHIROPRACTI C CENTE M9901 SEGMENTAL & 03-18-2017 [place] SOMATIC [facility] DYSFUNCTION C CENTE CERVICAL REGION M9905 SEGMENTAL & 03-18-2017 [place] [facility] DYSFUNCTION C CENTE OF PELVIC REGION K92.1 MELENA 03-10-2017 R05 COUGH 03-10-2017 R06.02 SHORTNESS 03-10-2017 OF BREATH R07.89 OTHER CHEST 03-10-2017 PAIN I49.9 CARDIAC 03-05-2017 ARRHYTHMIA, UNSPECIFIED F86639 OTHER 03-02-2017 [facility] [employer] [facility] K921 MELENA 02-28-2017 [facility]OS[facility]ITA R05 COUGH 02-28-2017 [facility]OS[facility] R0789 OTHER CHEST 02-28-2017 [facility] R195 OTHER FECAL 02-28-2017 [facility] N EMERGENCY ABNORMALITI SERVI ES L298 OTHER 02-17-2017 [facility] PRURITUS [place] L308 OTHER 02-17-2017 [facility] SPECIFIED [place], [facility] Z452 ENCOUNTER 01-26-2017 [facility] ADJUSTMENT& [facility] MGMT INC VASCULAR ACCESS DEVICE Z4800 ENCOUNTER 01-26-2017 [facility] CHANGE/RADU [facility] SUNIL NONSURG INC WOUND DRESSING T5925IL ALLERGY 01-14-2017 [facility] UNSPECIFIED INITIAL ENCOUNTER E6609 OTHER 01-13-2017 [facility] OBESITY DUE [facility] TO EXCESS INC CALORIES E669 OBESITY 01-13-2017 [facility] UNSPECIFIED PHYSICIANS GROUP R002 PALPITATION 01-13-2017 [place] S [facility] ASS R0600 DYSPNEA 01-13-2017 [place] UNSPECIFIED MEDICAL IMAGING ASS R9431 ABNORMAL 01-13-2017 [facility] ELECTROCARD [facility] IOGRAM INC O169 UNSPECIFIED 01-02-2017 [facility] MATERNAL PHYSICIANS HYPERTENSIO GROUP N UNS TRIMESTER F93505 ENCOUNTER 12-31-2016 [facility] REMOVAL SERV INTRAUTERIN FOUNDATION E CONTRACEPT DEVICE H538 OTHER 12-18-2016 [place] VISUAL [facility] DISTURBANCE IMAGING ASS S R112 NAUSEA WITH 12-18-2016 [facility] UNSPECIFIED SERVICE R42 DIZZINESS 12-18-2016 [facility] AND SERV GIDDINESS FOUNDATION R51 HEADACHE 12-18-2016 [facility] N3000 ACUTE 12-17-2016 [facility] CYSTITIS [facility]ANS, WITHOUT PLLC HEMATURIA N390 URINARY 12-17-2016 [facility] TRACT PHYSICIANS, INFECTION PLLC SITE NOT SPECIFIED R000 TACHYCARDIA 12-17-2016 [facility]PITAL P J02618 ENCOUNTER 10-16-2016 [facility] ROUTINE SERV CHECKING IU FOUNDATION CONTRACEPT DEVICE R07385 SUPERVISION 08-09-2016 [facility] OTH HIGH SERV RISK PREG FOUNDATION THIRD TRIMESTER O133 GESTATIONAL 08-09-2016 [facility] HTN W/O SERV SIG FOUNDATION PROTEINURIA THIRD TRI O80 ENCOUNTER 08-09-2016 [place] FOR ANESTHESIA FULL-TERM GROUP PS UNCOMPLICAT ED DELIVERY Z370 SINGLE LIVE 08-09-2016 [facility] SERV [facility] Z3A38 38 WEEKS 08-09-2016 [facility] GESTATION SERV OF FOUNDATION M80102 SUPERVISION 08-08-2016 [facility] OTH HIGH SERV RISK PREG FOUNDATION UNS TRIMESTER O4703 FALSE LABOR 07-29-2016 [facility] BEFORE 37 SERV CMPLETE FOUNDATION WEEKS GEST 3RD TRI Z3A36 36 WEEKS 07-29-2016 [facility] GESTATION SERV OF FOUNDATION O0990 SUPERVISION 07-24-2016 [facility] PREG UNS UNS TRIMESTER Z36 ENCOUNTER 07-24-2016 [facility] SCREENING OF MOTHER L09074 OTHER SPEC 07-10-2016 [facility] SERV RELATED FOUNDATION COND 3RD TRIMESTER R102 PELVIC AND 07-10-2016 [facility] PERINEAL SERV PAIN FOUNDATION Z3A33 33 WEEKS 07-10-2016 [place] [facility] GESTATION SERV OF FOUNDATION R28814 PRE-EXISTIN 06-23-2016 [facility]ICAL G ESSENTIAL SERV HTN COMP FOUNDATION PREG THIRD TRI Z3A31 31 WEEKS 06-23-2016 [place] [facility] GESTATION SERV OF FOUNDATION Z3480 ENC 06-17-2016 [facility] SUPERVISION PHYSICIANS OTH NORMAL GROUP PREG UNS TRIMESTER Z3A29 29 WEEKS 06-11-2016 [facility] COMM[facility]Y OF HOSPITA A49876 ABNORMAL 05-26-2016 [facility] GLUCOSE PHYSICIANS COMPLICATIN GROUP G B04957 OTHER SPEC 05-12-2016 [facility] SERV RELATED FOUNDATION COND 2ND TRIMESTER R030 ELEVATED 05-12-2016 [place] [facility] BLOOD-PRESS SERV URE READING FOUNDATION WITHOUT DX HTN Z3A25 25 WEEKS 05-12-2016 [place] [facility] GE[place] SERV OF FOUNDATION Z3492 ENC 04-10-2016 [facility] MEDICAL NORMAL IMAGING ASS UNS 2 TRIMESTER Z3A20 20 WEEKS 04-10-2016 [place] GESTATION MEDICAL OF IMAGING ASS N93272 CELLULITIS 03-20-2016 [facility] OF LEFT PHYSICIANS UPPER LIMB GROUP W05255Q INSECT BITE 02-11-2016 [facility] PHYSICIANS NONVENOMOUS GROUP LT UPPER ARM INITIAL ENC M40PDFX BIT/STUNG 02-11-2016 [facility] NONVENOM PHYSICIANS INSECT OTH GROUP ARTHROPOD INIT ENC Z40624 SPOTTING 01-15-2016 [facility] COMPLICATIN [facility] G INC FIRST TRIMESTER Z3201 ENCOUNTER 01-02-2016 [facility] FOR PHYSICIANS GROUP TEST RESULT POSITIVE 26459 OTHER 10-13-2013 RIVAS FUNCTIONAL ANGIE DISORDERS OF INTESTINE 786.2 786.2 COUGH 10-13-2013 [facility] 7862 COUGH 10-13-2013 WEHRMAN III JOEL 787.02 787.02 10-13-2013 [place] NAUSEA [facility] 06846 NAUSEA 10-13-2013 WEHRMAN III ALONE JOEL 997.49 997.49 10-13-2013 [facility] [place] [address] OTHER 10-13-2013 [place] DIGESTIVE [facility] SYSTEM INC COMPLICATIO NS V4589 OTHER 10-13-2013 WEHRMAN III POSTSURGICA JOEL L STATUS OTHER 74221 CHOLECYSTIT 10-11-2013 OSIRIS REMY IS, UNSPECIFIED 02799 CHRONIC 10-11-2013 EVELYN TOD CHOLECYSTIT IS 5758 OTHER 09-27-2013 RIVAS SPECIFIED ANGIE DISORDER OF GALLBLADDER 65225 ABDOMINAL 09-27-2013 [facility] PAIN RIGHT [facility] UPPER INC QUADRANT V2511 ENC FOR 09-27-2013 UYEN KAITLIN INSERTION INTRAUTERIN E CONTRACEPT DEVICE 663.31 663.31 CORD 08-11-2013 Linda ENTANGLE [facility] 664.11 664.11 DEL 08-11-2013 Linda W 2 DEG [facility] ER V27.0 V27.0 08-11-2013 Linda [facility] LIVEBORN 650 NORMAL 08-09-2013 WOMEN'S DELIVERY [facility] 50530 OTH&UNS CRD 08-09-2013 [facility] W/O COMPRS CLINIC OF COMP L&D [place] DELIV 19367 SECOND-DEGR 08-09-2013 [facility] LACERATION CLIN[facility] OF WITH [place] DELIVERY V270 OUTCOME OF 08-09-2013 [facility] OF LIVEBORN [place] V220 SUPERVISION 08-08-2013 UYEN MADRIGAL OF NORMAL FIRST 87456 THREATENED 07-30-2013 [facility] PREMATURE [facility] LABOR INC ANTEPARTUM 22659 OTHER 07-30-2013 HARPE[facility] ZAIN THREATENED LABOR, ANTEPARTUM 15327 GENERALIZED 05-30-2013 [facility] ANXIETY RG DISORDER 70968 UNSPECIFIED 04-12-2013 [facility] VIRAL JAM INFECTION IN CCE & UNS SITE 477.8 477.8 04-12-2013 [place] ALLERGIC [facility] RHINITIS Hospital NEC 4778 ALLERGIC 04-12-2013 [place] RHINITIS [facility] DUE TO INC OTHER ALLERGEN 4779 ALLERGIC 04-12-2013 [place] RHINITIS JAM CAUSE UNSPECIFIED 790.8 790.8 04-12-2013 [place] VIREMIA [facility] 7908 UNSPECIFIED 04-12-2013 [place] VIREMIA [facility] INC V22.2 V22.2 PREG 04-12-2013 [facility] V222 04-12-2013 [facility] INCIDENTAL INC V283 ENCOUNTER 03-31-2013 UYEN MADRIGAL ROUTINE SCREEN MALFORMATIO N ULTRASONIC 26666 OTHER 01-06-[address] [facility] COMPLICATIO CLINIC OF N [place] ANTEPARTUM V221 SUPERVISION 12-28-2012 PATHOLOGY & OF OTHER CYTOLOGY NORMAL LAB V7242 12-28-2012 [facility]AM[facility] OR TEST CLINIC OF POSITIVE [place] RESULT I49.8 OTHER SPECIFIED CARDIAC ARRHYTHMIAS N39.0 URINARY TRACT INFECTION, SITE NOT SPECIFIED R07.9 CHEST PAIN, UNSPECIFIED R51 HEADACHE S93.409A SPRAIN OF UNSP LIGAMENT OF UNSPECIFIED ANKLE, INIT ENCNTR T78.40XA ALLERGY, UNSPECIFIED , INITIAL ENCOUNTER W57.XXXA BIT/STUNG BY NONVENOM INSECT \T\ OTH NONVENOM ARTHROPODS, INIT Z33.1 STATE, INCIDENTAL Z34.90 ENCNTR FOR SUPRVSN OF NORMAL , UNSP, UNSP TRIMESTER Allergies, Adverse Reactions, Alerts Type Allergy to substance Adverse Reaction to Substance Substance Reaction Severity NO KNOWN ALLERGIES Unknown Unknown Clinical Alert Notifications Alert Asthma: non-ICS non-compliance with h/o of SA beta agonist Medications Na ND Rx Da Fi Fi Am Da Di Ph RX Ph St me C No te ll ll ou ys ag ar # ys at rm s nt no ma ic us Or Da si cy ia de te s n re d MO 57 10 11 30 30 00 PR Ac RT 23 -0 -1 .0 00 L- ti AZ 70 9- 0- 00 07 MA ve AP 00 20 20 24 RT IN 83 17 17 54 E 0 40 PH 15 AR MA MG CY TA #1 BL 23 ET 4 SE 68 10 11 30 30 00 PR Ac RT 64 -0 -1 .0 00 L- ti RA 50 9- 0- 00 07 MA ve LI 52 20 20 24 RT NE 25 17 17 54 4 42 PH HC AR L MA 50 CY MG #1 23 TA 4 BL ET MO 57 10 11 30 30 00 PR Ac NT 23 -0 -1 .0 00 L- ti EL 70 9- 0- 00 07 MA ve UK 25 20 20 24 RT 53 17 17 54 T 0 39 PH SO AR D MA 10 CY MG #1 23 TA 4 BL ET CE 16 10 11 30 30 00 PR Ac TI 57 -0 -1 .0 00 L- ti RI 10 9- 0- 00 08 MA ve ZI 40 20 20 84 RT NE 25 17 17 71 0 27 PH HC AR L MA 10 CY MG #1 23 TA 4 BL ET OM 60 10 11 30 30 00 PR Ac EP 50 -0 -1 .0 00 L- ti RA 53 9- 0- 00 07 MA ve ZO 95 20 20 24 RT LE 20 17 [address] AR MA 20 CY MG #1 23 CA 4 PS UL E QV 59 09 10 8. 30 00 PR Ac AR 31 -1 -1 69 00 L- ti 00 1- 3- 9 07 MA ve 80 20 20 20 50 RT 41 17 17 77 MC 2 33 PH G AR OR MA AL CY IN #5 HUMPHREY 91 LE R VT 23 09 10 60 30 00 PR Ac OP 15 -1 -1 .0 00 L- ti RA 50 1- 3- 00 07 MA ve NO 11 20 20 49 RT LO 10 17 17 81 L 1 03 PH 20 AR MA MG CY TA #5 BL 91 ET OM 60 09 10 30 30 00 PR Ac EP 50 -0 -0 .0 00 L- ti RA 53 5- 6- 00 07 MA ve ZO 95 20 20 50 RT LE 20 17 [address] AR MA 20 CY MG #5 91 CA PS UL E MO 57 09 10 30 30 00 PR Ac NT 23 -0 -0 .0 00 L- ti EL 70 5- 6- 00 07 MA ve UK 25 20 20 50 RT 53 17 17 77 T 0 28 PH SO AR D MA 10 CY MG #5 91 TA BL ET CE 16 09 10 30 30 00 PR Ac TI 57 -0 -0 .0 00 L- ti RI 10 5- 6- 00 08 MA ve ZI 40 20 20 84 RT NE 25 17 17 09 0 75 PH HC AR L MA 10 CY MG #5 91 TA BL ET MO 57 08 09 30 30 00 PR Ac RT 23 -3 -2 .0 00 L- ti AZ 70 0- 9- 00 07 MA ve AP 00 20 20 50 RT IN 83 17 17 68 E 0 06 PH 15 AR MA MG CY TA #5 BL 91 ET SE 68 08 09 30 30 00 PR Ac RT 64 -3 -2 .0 00 L- ti RA 50 0- 9- 00 07 MA ve LI 52 20 20 50 RT NE 25 17 17 68 4 05 PH HC AR L MA 50 CY MG #5 91 TA BL ET VT 23 08 09 60 30 00 [facility] OP 15 -1 -1 .0 00 L- ti RA 50 5- 5- 00 07 MA ve NO 11 20 20 49 RT LO 10 17 17 81 L 1 03 PH 20 AR MA MG CY TA #5 BL 91 ET PO 62 08 09 51 30 00 [facility] LY 17 -1 -1 0. 00 L- ti ET 50 5- 5- 00 07 MA ve HY 44 20 20 0 50 RT LE 21 17 17 40 NE 5 88 PH AR GL MA YC CY OL #5 33 91 50 PO WD QV 59 08 09 8. 30 00 PR Ac AR 31 -1 -1 69 00 L- ti 00 5- 5- 9 07 MA ve 80 20 20 20 48 RT 41 17 17 02 MC 2 21 PH G AR OR MA AL CY IN #5 HUMPHREY 91 LE R OM 60 07 09 30 30 00 PR Ac EP 50 -3 -0 .0 00 L- ti RA 53 1- 1- 00 07 MA ve ZO 95 20 20 49 RT LE 20 17 17 [address] AR MA 20 CY MG #5 91 CA PS UL E CE 16 07 09 30 30 00 WA Ac TI 57 -3 -0 .0 00 L- ti RI 10 1- 1- 00 08 MA ve ZI 40 20 20 83 RT NE 25 17 17 88 0 47 PH HC AR L MA 10 CY MG #5 91 TA BL ET MO 57 07 09 30 30 00 PR Ac NT 23 -3 -0 .0 00 L- ti EL 70 1- 1- 00 07 MA ve UK 25 20 20 49 RT 53 17 17 20 T 0 89 PH SO AR D MA 10 CY MG #5 91 TA BL ET AM 00 07 09 20 10 00 PR Ac OX 09 -3 -0 .0 00 L- ti IC 33 1- 1- 00 07 MA ve IL 10 20 20 50 RT LI 90 17 17 15 N 5 49 PH 50 AR 0 MA MG CY CA #5 PS 91 UL E MO 57 07 09 30 30 00 PR Ac RT 23 -3 -0 .0 00 L- ti AZ 70 1- 1- 00 07 MA ve AP 00 20 20 48 RT IN 83 17 17 72 E 0 83 PH 15 AR MA MG CY TA #5 BL 91 ET OM 60 07 08 30 30 00 PR Ac EP 50 -0 -1 .0 00 L- ti RA 53 8- 1- 00 07 MA ve ZO 95 20 20 49 RT LE 20 17 17 [address] AR MA 20 CY MG #5 91 CA PS UL E VT 23 07 08 60 30 00 PR Ac OP 15 -1 -1 .0 00 L- ti RA 50 0- 1- 00 07 MA ve NO 11 20 20 49 RT LO 10 17 17 81 L 1 03 PH 20 AR MA MG CY TA #5 BL 91 ET GA 43 06 08 40 2 00 PR Ac 38 -2 -0 00 00 L- ti LY 60 9- 4- .0 07 MA ve TE 09 20 20 00 49 RT -G 01 17 17 60 9 79 PH SO AR LATONYA MA TI CY ON #5 91 QV 59 07 08 8. 30 00 PR Ac AR 31 -0 -0 69 00 L- ti 00 4- 4- 9 07 MA ve 80 20 20 20 48 RT 41 17 17 02 MC 2 21 PH G AR OR MA AL CY IN #5 HUMPHREY 91 LE R CE 16 06 07 30 30 00 PR Ac TI 57 -2 -2 .0 00 L- ti RI 10 4- 8- 00 08 MA ve ZI 40 20 20 83 RT NE 25 17 17 88 0 47 PH HC AR L MA 10 CY MG #5 91 TA BL ET MO 57 06 07 30 30 00 WA Ac RT 23 -0 -0 .0 00 L- ti AZ 70 7- 7- 00 07 MA ve AP 00 20 20 48 RT IN 83 17 17 72 E 0 83 PH 15 AR MA MG CY TA #5 BL 91 ET MO 57 06 07 30 30 00 PR Ac NT 23 -0 -0 .0 00 L- ti EL 70 6- 7- 00 07 MA ve UK 25 20 20 49 RT 53 17 17 20 T 0 89 PH SO AR D MA 10 CY MG #5 91 TA BL ET LE 00 06 07 15 17 00 PR Ac VA 59 -0 -0 .0 00 L- ti LB 12 6- 7- 00 07 MA ve UT 92 20 20 49 RT ER 75 17 17 20 OL 4 83 PH AR TA MA R CY HF A #5 45 91 MC G IN H OM 60 06 07 30 30 00 PR Ac EP 50 -0 -0 .0 00 L- ti RA 53 6- 7- 00 07 MA ve ZO 95 20 20 49 RT LE 20 17 17 [address] AR MA 20 CY MG #5 91 CA PS UL E FL 60 06 07 16 30 00 PR Ac UT 43 -0 -0 .0 00 L- ti IC 20 6- 7- 00 07 MA ve 26 20 20 49 RT ON 41 17 17 20 E 5 86 PH VT AR OP MA CY 50 #5 MC 91 G SP RA Y VT 23 05 06 60 30 00 PR Ac OP 15 -1 -2 .0 00 L- ti RA 50 9- 3- 00 07 MA ve NO 11 20 20 47 RT LO 10 17 17 08 L 1 19 PH 20 AR MA MG CY TA #5 BL 91 ET QV 59 05 06 8. 30 00 PR Ac AR 31 -1 -2 69 00 L- ti 00 9- 3- 9 07 MA ve 80 20 20 20 48 RT 41 17 17 02 MC 2 21 PH G AR OR MA AL CY IN #5 HUMPHREY 91 LE R CE 16 05 06 30 30 00 PR Ac TI 57 -1 -2 .0 00 L- ti RI 10 9- 3- 00 08 MA ve ZI 40 20 20 83 RT NE 25 17 17 88 0 47 PH HC AR L MA 10 CY MG #5 91 TA BL ET MO 57 05 06 30 30 00 PR Ac RT 23 -1 -1 .0 00 L- ti AZ 70 1- 6- 00 07 MA ve AP 00 20 20 48 RT IN 83 17 17 72 E 0 83 PH 15 AR MA MG CY TA #5 BL 91 ET OM 45 05 06 60 30 00 PR Ac EP 80 -0 -0 .0 00 L- ti RA 20 9 9- 00 08 MA ve ZO 88 20 20 83 RT LE 83 17 [address] AR MA 20 CY MG #5 91 TA BL ET MO 31 05 06 30 30 00 PR Ac NT 72 -0 -0 .0 00 L- ti EL 20 3- 2- 00 07 MA ve UK 72 20 20 48 RT 61 17 17 02 T 0 19 PH SO AR D MA 10 CY MG #5 91 TA BL ET QV 59 04 05 8. 30 00 PR Ac AR 31 -1 -1 69 00 L- ti 00 8- 9- 9 07 MA ve 80 20 20 20 48 RT 41 17 17 02 MC 2 21 PH G AR OR MA AL CY IN #5 HUMPHREY 91 LE R VT 23 04 05 60 30 00 PR Ac OP 15 -1 -1 .0 00 L- ti RA 50 8 9- 00 07 MA ve NO 11 20 20 47 RT LO 10 17 17 08 L 1 19 PH 20 AR MA MG CY TA #5 BL 91 ET CE 16 04 05 30 30 00 PR Ac TI 57 -1 -1 .0 00 L- ti RI 10 8- 9- 00 08 MA ve ZI 40 20 20 83 RT NE 25 17 17 88 0 47 PH HC AR L MA 10 CY MG #5 91 TA BL ET DI 16 04 05 30 15 00 PR Ac CL 57 -0 -0 .0 00 L- ti OF 10 2- 5- 00 07 MA ve EN 20 20 20 48 RT AC 15 17 17 00 0 51 PH SO AR D MA EC CY 75 #5 91 MG TA B BE 68 04 05 20 7 00 PR Ac NZ 38 -0 -0 .0 00 L- ti ON 20 2- 5- 07 MA ve AT 24 20 20 48 RT AT 70 17 17 00 E 1 52 PH 10 AR 0 MA MG CY CA #5 PS 91 UL E MO 54 04 05 30 30 00 PR Ac NT 45 -0 -0 .0 00 L- ti EL 80 3- 5- 00 07 MA ve UK 89 20 20 48 RT 01 17 17 02 T 0 19 PH SO AR D MA 10 CY MG #5 91 TA BL ET EP 49 04 05 2. 2 00 PR Ac IN 50 -0 -0 00 00 L- ti EP 20 4- 5- 0 07 MA ve HR 10 20 20 48 RT IN 20 17 17 02 E 2 98 PH 0. AR 3 MA MG CY AU #5 TO 91 -I NJ EC T LE 66 04 05 14 8 00 PR Ac VA 99 -0 -0 4. 00 L- ti LB 30 5- 5- 00 07 MA ve UT 02 20 20 0 48 RT ER 32 17 17 02 OL 7 20 PH AR 1. MA 25 CY MG #5 /3 91 ML SO L LE 00 04 05 15 17 00 PR Ac VA 59 -0 -0 .0 00 L- ti LB 12 3- 5- 00 07 MA ve UT 92 20 20 48 RT ER 75 17 17 02 OL 4 17 PH AR TA MA R CY HF A #5 45 91 MC G IN H [address] 00 03 04 60 30 00 PR Ac OO 53 -2 -2 .0 00 L- ti L 61 7- 8- 00 08 MA ve SO 06 20 20 83 RT FT 41 17 17 87 EN 0 16 PH ER AR MA 25 CY 0 MG #5 91 SO FT GE L VT 23 03 04 60 30 00 PR Ac OP 15 -1 -1 .0 00 L- ti RA 50 4- 4- 00 07 MA ve NO 11 20 20 47 RT LO 10 17 17 08 L 1 19 PH 20 AR MA MG CY TA #5 BL 91 ET CE 16 03 04 30 30 00 PR Ac TI 57 -1 -1 .0 00 L- ti RI 10 4- 4- 00 08 MA ve ZI 40 20 20 83 RT NE 25 17 17 81 0 17 PH HC AR L MA 10 CY MG #5 91 TA BL ET QV 59 03 04 8. 30 00 PR Ac AR 31 -1 -1 69 00 L- ti 00 4- 4- 9 07 MA ve 80 20 20 20 47 RT 41 17 17 10 MC 2 09 PH G AR OR MA AL CY IN #5 HUMPHREY 91 LE R VT 00 02 03 60 30 00 PR Ac OP 37 -1 -2 .0 00 L- ti RA 80 5- 4- 00 07 MA ve NO 18 20 20 47 RT LO 30 17 17 08 L 1 19 PH 20 AR MA MG CY TA #5 BL 91 ET VE 00 02 03 18 17 00 PR Ac NT 17 -1 -2 .0 00 L- ti OL 30 6- 4- 00 07 MA ve IN 68 20 20 47 RT 22 17 17 10 HF 0 98 PH A AR 90 MA CY MC G #5 IN 91 HUMPHREY LE R QV 59 02 03 8. 30 00 WA Ac AR 31 -1 -1 69 00 L- ti 00 5- 7- 9 07 MA ve 80 20 20 20 47 RT 41 17 17 10 MC 2 09 PH G AR OR MA AL CY IN #5 HUMPHREY 91 LE R CE 16 02 03 30 30 00 PR Ac TI 57 -1 -1 .0 00 L- ti RI 10 5- 7- 00 08 MA ve ZI 40 20 20 83 RT NE 25 17 17 81 0 17 PH HC AR L MA 10 CY MG #5 91 TA BL ET VT 23 01 02 60 30 00 PR Ac OP 15 -1 -2 .0 00 L- ti RA 50 9- 4- 00 07 MA ve NO 11 20 20 46 RT LO 10 17 17 57 L 1 61 PH 20 AR MA MG CY TA #5 BL 91 ET CE 68 01 02 21 7 00 PR Ac PH 18 -1 -1 .0 00 L- ti AL 00 8- 7- 00 07 MA ve EX 12 20 20 46 RT IN 20 17 17 55 2 70 PH 50 AR 0 MA MG CY CA #5 PS 91 UL E ON 00 11 0 No DA 37 -1 NS 87 4- Lo ET 73 20 ng RO 29 13 er N 3 OD Ac T ti 4 ve MG TA BL ET AP 00 11 0 No AP 40 -1 /H 60 4- Lo YD 36 20 ng RO 56 13 er CO 2 DO Ac NE ti ve 32 5 MG -5 MG VT 65 09 1 No EN 16 -1 AT 20 1- Lo AL 66 20 ng [address] 0 US Ac ti TA ve BL ET AM 00 09 0 No PI 78 -1 CI 13 0- Lo LL 41 20 ng IN 39 13 er 2 2 Ac GM ti ve A- V AL SO 00 09 0 No DI 40 -1 UM 97 0- Lo 10 20 ng CH 16 13 er LO 7 RI Ac DE ti ve 0. 9% SO LN DE 00 09 0 No XT 40 -1 RO 97 0- Lo SE 92 20 ng 90 13 er 5% 9 -L Ac R ti IV ve SO LATON[place] TI ON LA [address] 40 -1 AT 97 0- Lo ED 95 20 ng 30 13 er RI 9 NG Ac ER ti S ve IN JE CT IO N PI 11 09 0 No TO 11 -1 CI 11 0- Lo N 11 20 ng 30 13 13 er 3 UN Ac IT ti S/ ve LR 50 0M L IV BU 55 09 0 No TO 39 -1 RP 00 0- Lo HUMPHREY 18 20 ng NO 30 13 er L 1 1 Ac MG ti /M ve L AL MA 00 09 2 No PA 90 -1 P 41 0- Lo 32 98 20 ng 5 26 13 er MG 1 Ac TA ti BL ve ET DE 63 09 2 No RM 02 -1 OP 98 0- Lo LA [address] 40 13 er 1 SP Ac RA ti Y ve Ib 62 09 2 No up 58 -1 ro 40 0- Lo fe 74 20 ng n 60 13 er 40 1 0M Ac G ti Ta ve bl et LA 20 09 2 No NO 45 -1 LI 18 0- Lo N 71 20 ng CR 22 13 er EA 6 M Ac 56 ti GM ve A. 50 09 2 No E. 28 -1 R 93 0- Lo PA 25 20 ng DS 00 13 er 1 Ac ti ve Vital Signs 10-13-2013 17:52 Name Value Interpretat Reference Comment ion Range Body 99.4 [degF] Temperature BP 95 mm[Hg] Diastolic BP Systolic 136 mm[Hg] Heart 82 /min Rate/Pulse O2% 98 % Respiratory 18 /min Rate 10-13-2013 16:26 Name Value Interpretat Reference Comment ion Range BP 100 mm[Hg] Diastolic BP Systolic 154 mm[Hg] Heart 86 /min Rate/Pulse O2% 96 % Respiratory 20 /min Rate 08-09-2013 11:56 Name Value Interpretat Reference Comment ion Range Weight 220 [lb_av] Measured Weight 99.792 kg Measured 04-12-2013 18:35 Name Value Interpretat Reference Comment ion Range Body 100.1 Temperature [degF] BP 82 mm[Hg] Diastolic BP Systolic 136 mm[Hg] Heart 117 /min Rate/Pulse O2% 96 % Respiratory 18 /min Rate 04-12-2013 18:33 Name Value Interpretat Reference Comment ion Range Body 100.1 Temperature [degF] BP 82 mm[Hg] Diastolic BP Systolic 136 mm[Hg] Heart 130 /min Rate/Pulse O2% 96 % Respiratory 18 /min Rate Results Labs Lab Lab Date Result Refere Interp Status Commen Order Detail nces retati t Range on pH Bld[facility] (08-09-2013 17:50) pH 08-09-2 7.28 7.35-7. complet [facility] 013 UNK 45 ed 17:50 URINALYSIS/COMPLETE (08-09-2013 12:02) URINE 08-09- YELLOW YELLOW complet COLOR 013 ed 12:02 URINE 08-09- CLEAR CLEAR complet APPEARA 013 ed NCE 12:02 URINE 08-09- NEGATIV NEG complet GLUCOSE 013 E ed - 12:02 DIPSTIC K URINE 08-09- NEGATIV NEG complet BILIRUB 013 E ed IN - 12:02 DIPSTIC K URINE 08-09-2 NEGATIV NEG complet KETONE 013 E mg/dL ed 12:02 URINE 08-09- 1.025 1.005-1 complet SPECIFI 013 UNK .030 ed C 12:02 GRAVITY URINE NEGATIV NEG complet BLOOD 013 E ed 12:02 URINE 7.0 UNK 5.0-8.5 complet PH 013 ed 12:02 URINE 08-09- NEGATIV NEG complet PROTEIN 013 E mg/dL ed - 12:02 DIPSTIC K URINE 08-09-2 0.2 NEG complet UROBILI 013 E.U./dL ed NOGEN - 12:02 DIPSTIC K URINE 08-09-2 NEGATIV NEG complet NITRATE 013 E ed - 12:02 DIPSTIC K URINE 08-09-2 NEGATIV NEG complet LEUK 013 E ed ESTERAS 12:02 E URINE 08-09- OCC 0 complet RBC 013 rbc/hpf ed 12:02 URINE 08-09-2 OCC 0-5 complet SQUAMOU 013 #/hpf ed S CELLS 12:02 BASIC METABOLIC PANEL (08-09-2013 05:45) Glucose 08-09- 105 74-106 complet 013 mg/dL ed Bld-mCn 05:45 c BUN 08-09- 6 mg/dL 7-18 complet Bld-mCn 013 ed c 05:45 Creat 0.7 0.6-1.0 complet SerPl-m 013 mg/dL ed Cnc 05:45 GFR 107 59- complet (ESTIMA 013 ML/MIN ed JEFF) 05:45 Sodium 138 136-145 complet SerPl-s 013 mmoL/L ed Cnc 05:45 Potassi 3.6 3.5-5.1 complet um 013 mmoL/L ed SerPl-s 05:45 Cnc Chlorid 104 98-107 complet e 013 mmoL/L ed SerPl-s 05:45 Cnc CO2 21 21.0-32 complet SerPl-s 013 mmoL/L .0 ed Cnc 05:45 Calcium 8.7 8.5-10. complet 013 mg/dL 1 ed SerPl-m 05:45 Cnc URIC ACID (08-09-2013 05:45) URIC 4.8 2.6-7.2 complet ACID 013 mg/dL ed 05:45 AST SerPl-cCnc (08-09-2013 05:45) AST 9 U/L 15-37 complet SerPl-c 013 ed Cnc 05:45 ALT SerPl-cCnc (08-09-2013 05:45) ALT 21 U/L 30-65 complet SerPl-c 013 ed Cnc 05:45 PROTIME/INR (08-09-2013 05:45) PROTHRO 9.9 9.9-11. complet MBIN 013 SECONDS 6 ed TIME 05:45 INR Bld 0.93 0.9-1.1 complet 013 UNK ed 05:45 ACT PARTIAL THROMBO TIME (08-09-2013 05:45) ACT 25.9 25.3-32 complet PARTIAL 013 SECONDS .0 ed 05:45 THROMBO TIME Fibrinogen PPP-mCnc (08-09-2013 05:45) Fibrino 500.0 204.1-4 complet gen 013 mg/dL 58.1 ed PPP-mCn 05:45 c D Dimer PPP (08-09-2013 05:45) D Dimer 1870 0-400 High complet PPP 013 ng/mL alert ed 05:45 CBC with AUTO DIFF (08-09-2013 05:45) WBC # 08-09- 11.2 4.5-13. complet Bld 013 K/MM3 0 ed Auto 05:45 RBC # 09-10-2 3.71 4.2-5.4 complet Bld 013 M/mm3 ed Auto 05:45 Hgb -10-2 10.6 12.2-16 complet Bld-mCn 013 g/dL .2 ed c 05:45 Hct Fr -10-2 31.5 % 37.0-47 complet Bld 013 .0 ed 05:45 MCV RBC -10-2 84.8 fl 82.2-97 complet 013 .8 ed 05:45 MCH RBC -10-2 28.5 pg 27-31.2 complet Qn 013 ed Auto 05:45 MEAN -10-2 33.6 31.8-35 complet CORPUSC 013 g/dl .4 ed ULAR 05:45 HGB CONC RDW RBC -10-2 15.5 % 11.5-17 complet Auto 013 .5 ed 05:45 Platele 09-10-2 381 142-424 complet t Bld 013 K/mm3 ed Ql 05:45 Manual MEAN 10-2 7.5 fl 7.4-10. complet PLATELE 013 4 ed T 05:45 VOLUME Granulo 09-10-2 69.9 % 37.0-80 complet cytes 013 .0 ed Fr Bld 05:45 Auto LYMPH % 09-10-2 22.7 % 10-50.0 complet 013 ed 05:45 Monocyt 09-10-2 6.6 % 1.7-9.3 complet es Fr 013 ed Bld 05:45 Auto Eosinop 09-10-2 0.7 % 0.1-12. complet hil Fr 013 0 ed Bld 05:45 Auto Basophi 09-10-2 0.1 % 0.1-2.0 complet ls Fr 013 ed Bld 05:45 Auto Granulo 09-10-2 7.8 1.8-7.8 complet cytes # 013 K/mm3 ed Bld 05:45 Auto Lymphoc 09-10-2 2.6 0.7-4.5 complet ytes Fr 013 K/mm3 ed Bld 05:45 Auto Monocyt 09-10-2 0.7 0.1-1.0 complet es # 013 K/mm3 ed Bld 05:45 Auto Eosinop 09-10-2 0.1 0.0-0.4 complet hil # 013 K/mm3 ed Bld 05:45 Auto Basophi 09-10-2 0.0 0-0.2 complet ls # 013 K/MM3 ed Bld 05:45 Auto CBC with AUTO DIFF (04-12-2013 17:55) WBC # 05-14-2 15.3 4.5-13. complet Bld 013 K/MM3 0 ed Auto 17:55 RBC # 05-14-2 3.67 4.2-5.4 complet Bld 013 M/mm3 ed Auto 17:55 Hgb 05-14-2 10.7 12.2-16 complet Bld-mCn 013 g/dL .2 ed c 17:55 Hct Fr 05-14-2 31.9 % 37.0-47 complet Bld 013 .0 ed 17:55 MCV RBC 05-14-2 86.9 fl 82.2-97 complet 013 .8 ed 17:55 MCH RBC 05-14-2 29.3 pg 27-31.2 complet Qn 013 ed Auto 17:55 MEAN 05-14-2 33.7 31.8-35 complet CORPUSC 013 g/dl .4 ed ULAR 17:55 HGB CONC RDW RBC 05-14-2 13.1 % 11.5-17 complet Auto 013 .5 ed 17:55 Platele 05-14-2 403 142-424 complet t Bld 013 K/mm3 ed Ql 17:55 Manual MEAN 05-14-2 7.3 fl 7.4-10. complet PLATELE 013 4 ed T 17:55 VOLUME Granulo 05-14-2 85.3 % 37.0-80 complet cytes 013 .0 ed Fr Bld 17:55 Auto LYMPH % 05-14-2 8.5 % 10-50.0 complet 013 ed 17:55 Monocyt 05-14-2 5.2 % 1.7-9.3 complet es Fr 013 ed Bld 17:55 Auto Eosinop 05-14-2 1.0 % 0.1-12. complet hil Fr 013 0 ed Bld 17:55 Auto Basophi 05-14-2 0.1 % 0.1-2.0 complet ls Fr 013 ed Bld 17:55 Auto Granulo 05-14-2 13.0 1.8-7.8 complet cytes # 013 K/mm3 ed Bld 17:55 Auto Lymphoc 05-14-2 1.3 0.7-4.5 complet ytes Fr 013 K/mm3 ed Bld 17:55 Auto Monocyt 05-14-2 0.8 0.1-1.0 complet es # 013 K/mm3 ed Bld 17:55 Auto Eosinop -14-2 0.2 0.0-0.4 complet hil # 013 K/mm3 ed Bld 17:55 Auto Basophi -14-2 0.0 0-0.2 complet ls # 013 K/MM3 ed Bld 17:55 Auto CHLAMYDIA AND GONORRHEA TESTING (11-05-2011 08:12) Chlamyd NEGATIV complet ia 011 E ed trachom 08:12 atis rRNA [Presen ce] in Unspeci fied specime n by Probe & target amplifi cation method Neisser NEGATIV complet ia 011 E ed gonorrh 08:12 oeae rRNA [Presen ce] in Unspeci fied specime n by Probe & target amplifi cation method CHLAMYDIA AND GONORRHEA TESTING (11-05-2011 08:12) COLLECT NA complet OR 011 ed 08:12 ETHNICI WHITE, complet TY 011 NON-HIS ed 08:12 PANIC KIT 3-331-1 complet EXPIRAT 011 2 ed ION 08:12 DATE SYMPTOM NO complet S 011 ed 08:12 REASON INITIAL complet FOR 011 FAMILY ed REQUEST 08:12 PLANNIN G VISIT SPECIME FEMALE complet N 011 ENDOCER ed SOURCE 08:12 VICAL PREGNAN NO complet T 011 ed 08:12 CHART NA complet NUMBER 011 ed 08:12 Chlamyd Pending complet ia 011 ed trachom 08:12 atis rRNA [Presen ce] in Unspeci fied specime n by Probe & target amplifi cation method Neisser Pending complet ia 011 ed gonorrh 08:12 oeae rRNA [Presen ce] in Unspeci fied specime n by Probe & target amplifi cation method Procedures Procedure DOS Code Location Performer Comment DELIVERY [id number] [facility] PRODUCTS 6 N N OF COMMUNTIY COMM[facility]TIY [facility] N EXTERNAL INTRODUCT [id number] [facility] ION OTH 6 N N [facility] PER[place] REPAIR OF 7569 [place] OTHER 3 [facility] OBSTETRIC LACERATIO N REPAIR OB 75.69 Davon [place] N NEC Encounters Encounter Start End Date Code Location Performer Type Date [facility]OSPITAL [facility] - 7 7 N [facility]EN [facility] - 7 7 N OUTPATIEN COMM[facility] 7 [facility] 7 7 [facility] 7 [facility] - 6 6 N INPATIENT COMMUNTIY [facility] - 6 6 N OUTPATIEN [facility] - 6 [facility] - 6 6 N OUTPATIEN [facility] - 6 6 N OUTPATIEN COMM[facility] - 6 6 N OUTPATIEN COMM[facility]TIY [facility] - 6 6 [facility] OUT[facility]EN [facility] LINDA - 6 6 [facility] Emergency DANIELA Garner (ER) 3 15:35 3 17:56 [facility] LINDA - 3 3 [facility] OUTPATIEN [facility] - 3 3 [facility] - 3 3 [facility] LIN[facility] - 3 3 [facility] OUTPATIEN [facility] Inpatient ELADIO Quevedo MD (IN) 3 05:00 3 15:00 [facility] LINDA - 3 3 [facility] INPATIENT [facility] LIN[facility] - 3 3 [facility] LINDA - 3 3 [facility] OUTPATIEN [facility] LINDA - 3 3 [facility] OUTPATIEN [facility] Emergency DANIELA FERRELL (ER) 3 18:22 3 18:34 [facility] LINDA - 3 3 [facility] LINDA - 3 3 [facility] OUTPATIEN [facility]
--- OUTSIDE RECORDS SUMMARY | 2017-10-23 01:08 | External Medical Summary Rpt | CCD ---
Author Author , DANIEL Organization DANIEL Address Unknown Phone Care Team Providers Care University Demonstrator Name Role Phone [facility] Unavailable Unavailable [place] [place] [facility] Unavailable Unavailable [employer], Unavailable Unavailable [employer] [facility] Unavailable Unavailable SERVICE, [facility] UYEN GOODMAN Unavailable Unavailable KAITLIN RIVAS ANGIE, Unavailable Unavailable RIVAS ANGIE [place] Unavailable [facility]available [facility] Davon Quevedo MD, Unavailable Unavailable Davon NICOLAS, Unavailable Unavailable GHASSAN NICOLAS [facility], Unavailable Unavailable PLL[facility], [facility] [place] Unavailable Unavailable HOSPITA, [facility] HARPEL ZAIN, HARPEL Unavailable Unavailable ZAIN [facility] Unavailable Unavailable INC, [facility] Unavailable [facility]available HOSPITAL P, [facility], Unavailable Unavailable [facility], Unavailable Unavailable [facility] SWAPNA FERRELL MD, Unavailable Unavailable SWAPNA FERRELL MD [facility] Unavailable Unavailable GROUP PS, [facility] Unavailable Unavailable [facility], [facility], Unavailable Unavailable [facility], [facility], Unavailable Unavailable [facility], Unavailable Unavailable PLLC, [facility] Unavailable Unavailable LAB, [facility] OSIRIS REMY, OSIRIS REMY Unavailable Unavailable EVELYN TOD, EVELYN TOD Unavailable Unavailable [facility], [facility], Unavailable Unavailable [facility], Unavailable Unavailable RIC Garner Unavailable Unavailable Curt POND MD, III, MD [facility] Unavailable Unavailable OF [place], [facility] [place] Purpose Continuity of Care [...] PARTNERS OF DISEASE [place] WITHOUT ESOPHAGITIS [id number] OTHER 08-04-2017 [facility] ADVERSE [facility] FOOD [place] REACTIONS NEC INITIAL ENCNTR N32416 ALLERGY TO 08-04-2017 [facility] OTHER FOODS [facility] [place] J029 ACUTE 06-29-2017 [facility] PHARYNGITIS [facility]YSICIAN GROUP UNSPECIFIED G46984 UNSPECIFIED 06-01-2017 [facility]MA [facility] UNCOMPLICAT GROUP PS ED R109 UNSPECIFIED 06-01-2017 [place] ABDOMINAL [facility]HESIA PAIN GROUP PS R10.84 GENERALIZED 05-27-2017 ABDOMINAL PAIN M5386 OTHER 05-12-2017 [place] SPECIFIED [facility] DORSOPATHIE C CENTE S LUMBAR REGION M5413 RADICULOPAT 05-12-2017 [place] HY [facility] CERVICOTHOR C CENTE ACIC REGION M9906 SEGMENTAL & 05-12-2017 [place] [facility]IC [facility] DYSFUNCTION C CENTE LOWER EXTREMITY I10 ESSENTIAL 05-11-2017 [facility] HYPERTENSIO N I499 CARDIAC 05-11-2017 [facility]IA [facility] UNSPECIFIED J309 ALLERGIC 05-11-2017 [facility]IS [facility] UNSPECIFIED J4520 MILD 05-11-2017 [facility]EN [facility] T ASTHMA UNCOMPLICAT ED K649 UNSPECIFIED 05-11-2017 [facility] HEMORRHOIDS L509 URTICARIA 05-11-2017 [place] [facility]NSPECIFIED [facility] R918 OTHER 05-05-2017 [facility] NONSPECIFIC PARTNERS OF ABNORMAL [place] FINDING OF LUNG FIELD R0602 SHORTNESS 04-07-2017 [place] [facility] R079 CHEST PAIN 04-07-2017 [place] [facility]PEC[facility] R1012 LEFT UPPER 03-20-2017 [facility]ANT PHYSICIAN PAIN GROUP R319 HEMATURIA 03-20-2017 [facility] UNSPECIFIED PHYSICIAN GROUP M549 DORSALGIA 03-18-2017 [place] UNSPECIFIED CHIROPRACTI C CENTE M9901 SEGMENTAL & 03-18-2017 [place] [facility]ATIC [facility] DYSFUNCTION C CENTE CERVICAL REGION M9905 SEGMENTAL & 03-18-2017 [place] [facility]IROP[facility] DYSFUNCTION C CENTE OF PELVIC REGION K92.1 MELENA 03-10-2017 R05 COUGH 03-10-2017 R06.02 SHORTNESS 03-10-2017 OF BREATH R07.89 OTHER CHEST 03-10-2017 PAIN I49.9 CARDIAC 03-05-2017 ARRHYTHMIA, UNSPECIFIED I65707 OTHER 03-02-2017 [place] [facility] K921 MELENA 02-28-2017 [facility] R05 COUGH 02-28-2017 [facility] R0789 OTHER CHEST 02-28-2017 [facility] R195 OTHER FECAL 02-28-2017 [facility] N EMERGENCY ABNORMALITI SERVI ES L298 OTHER 02-17-2017 [facility] [place] L308 OTHER 02-17-2017 [facility] SPECIFIED [place], DERMATITIS [facility] Z452 ENCOUNTER 01-26-2017 [facility] ADJUSTMENT& [facility] MGMT INC VASCULAR ACCESS DEVICE Z4800 ENCOUNTER 01-26-2017 [facility] CHANGE/RADU [facility] SUNIL NONSURG INC WOUND DRESSING [id number] ALLERGY 01-14-2017 [facility] UNSPECIFIED INITIAL ENCOUNTER E6609 OTHER 01-13-2017 [facility] OBESITY DUE [facility] TO EXCESS INC CALORIES E669 OBESITY 01-13-2017 [facility] UNSPECIFIED PHYSICIANS GROUP R002 PALPITATION 01-13-2017 [place] S [facility] R0600 DYSPNEA 01-13-2017 [place] UNSPECIFIED [facility]ICAL IMAGING ASS R9431 ABNORMAL 01-13-2017 [facility] ELECTROCARD [facility] IOGRAM INC O169 UNSPECIFIED 01-02-2017 [facility] MATERNAL PHYSICIANS HYPERTENSIO GROUP N UNS TRIMESTER P95961 ENCOUNTER 12-31-2016 [facility] REMOVAL SERV INTRAUTERIN FOUNDATION E CONTRACEPT DEVICE H538 OTHER 12-18-2016 [place] VISUAL [facility]ICAL DISTURBANCE IMAGING ASS S R112 NAUSEA WITH 12-18-2016 [facility] UNSPECIFIED SERVICE R42 DIZZINESS 12-18-2016 [facility] AND SERV GIDDINESS FOUNDATION R51 HEADACHE 12-18-2016 [facility] N3000 ACUTE 12-17-2016 [facility] CYSTITIS PH[facility]IANS, WITHOUT PLLC HEMATURIA N390 URINARY 12-17-2016 [facility] TRACT PHYSICIANS, INFECTION PLLC SITE NOT SPECIFIED R000 TACHYCARDIA 12-17-2016 [facility] P J27832 ENCOUNTER 10-16-2016 [facility] ROUTINE SERV CHECKING IU FOUNDATION CONTRACEPT DEVICE J05606 SUPERVISION 08-09-2016 [facility] OTH HIGH SERV RISK PREG FOUNDATION THIRD TRIMESTER O133 GESTATIONAL 08-09-2016 [facility] HTN W/O SERV SIG FOUNDATION PROTEINURIA THIRD TRI O80 ENCOUNTER 08-09-2016 [place] FOR ANESTHESIA FULL-TERM GROUP PS UNCOMPLICAT ED DELIVERY Z370 SINGLE LIVE 08-09-2016 [facility] SERV [facility] Z3A38 38 WEEKS 08-09-2016 [facility] GESTATION SERV OF FOUNDATION P73871 SUPERVISION 08-08-2016 [facility] OTH HIGH SERV RISK PREG FOUNDATION UNS TRIMESTER O4703 FALSE LABOR 07-29-2016 [facility] BEFORE 37 SERV CMPLETE FOUNDATION WEEKS GEST 3RD TRI Z3A36 36 WEEKS 07-29-2016 [facility] GE[facility]ATION SERV OF FOUNDATION O0990 SUPERVISION 07-24-2016 [facility] PREG UNS UNS TRIMESTER Z36 ENCOUNTER 07-24-2016 [facility] SCREENING OF MOTHER E33626 OTHER SPEC 07-10-2016 [facility] SERV RELATED FOUNDATION COND 3RD TRIMESTER R102 PELVIC AND 07-10-2016 [facility] PERINEAL SERV PAIN FOUNDATION Z3A33 33 WEEKS 07-10-2016 [facility] GESTATION SERV OF FOUNDATION T34498 PRE-EXISTIN 06-23-2016 [facility]ICAL G ESSENTIAL SERV HTN COMP FOUNDATION PREG THIRD TRI Z3A31 31 WEEKS 06-23-2016 [facility] SERV OF FOUNDATION Z3480 ENC 06-17-2016 [facility] SUPERVISION PHYSICIANS OTH NORMAL GROUP PREG UNS TRIMESTER Z3A29 29 WEEKS 06-11-2016 [facility] COMM[facility] OF HOSPITA G04035 ABNORMAL 05-26-2016 [facility] GLUCOSE PHYSICIANS COMPLICATIN GROUP G V04673 OTHER SPEC 05-12-2016 [facility] SERV RELATED FOUNDATION COND 2ND TRIMESTER R030 ELEVATED 05-12-2016 [facility] BLOOD-PRESS SERV URE READING FOUNDATION WITHOUT DX HTN Z3A25 25 WEEKS 05-12-2016 [place] [facility] GE[facility] SERV OF FOUNDATION Z3492 ENC 04-10-2016 [facility] MEDICAL NORMAL IMAGING ASS UNS 2 TRIMESTER Z3A20 20 WEEKS 04-10-2016 [place] GESTATION MEDICAL OF IMAGING ASS B35918 CELLULITIS 03-20-2016 [facility] OF LEFT PHYSICIANS UPPER LIMB GROUP M35316Q INSECT BITE 02-11-2016 [facility] PHYSICIANS NONVENOMOUS GROUP LT UPPER ARM INITIAL ENC M72NZVU BIT/STUNG 02-11-2016 [facility] NONVENOM PHYSICIANS INSECT OTH GROUP ARTHROPOD INIT ENC V46446 SPOTTING 01-15-2016 [facility] COMPLICATIN [facility] G INC FIRST TRIMESTER Z3201 ENCOUNTER 01-02-2016 [facility] FOR PHYSICIANS GROUP TEST RESULT POSITIVE 69005 OTHER 10-13-2013 RIVAS FUNCTIONAL ANGIE DISORDERS OF INTESTINE 786.2 786.2 COUGH 10-13-2013 [facility] 7862 COUGH 10-13-2013 WEHRMAN III JOEL 787.02 787.02 10-13-2013 Vashon NAUSEA [facility] 06258 NAUSEA 10-13-2013 WEHRMAN III ALONE JOEL 997.49 997.49 10-13-2013 [facility] [place] [address] OTHER 10-13-2013 [place] [facility] SYSTEM INC COMPLICATIO NS V4589 OTHER 10-13-2013 WEHRMAN III POSTSURGICA JOEL L STATUS OTHER 98107 CHOLECYSTIT 10-11-2013 OSIRIS REMY IS, UNSPECIFIED 85464 CHRONIC 10-11-2013 EVELYN TOD CHOLECYSTIT IS 5758 OTHER 09-27-2013 RIVAS SPECIFIED ANGIE DISORDER OF GALLBLADDER 99475 ABDOMINAL 09-27-2013 [facility] PAIN RIGHT [facility] UPPER INC QUADRANT V2511 ENC FOR 09-27-2013 UYEN KAITLIN INSERTION INTRAUTERIN E CONTRACEPT DEVICE 663.31 663.31 CORD 08-11-2013 Linda ENTANGLE [facility] 664.11 664.11 DEL 08-11-2013 Linda W 2 DEG [facility] V27.0 V27.0 08-11-2013 Linda [facility] LIVEBORN 650 NORMAL 08-09-2013 [facility]EN'S DELIVERY [facility] 27901 OTH&UNS CRD 08-09-2013 [facility] W/O COMPRS CLINIC OF COMP L&D [place] DELIV 54294 SECOND-DEGR 08-09-2013 [facility] PERINEAL [facility] CL[facility] OF WITH [place] DELIVERY V270 OUTCOME OF 08-09-2013 WOMEN'S DELIVERY [facility] SINGLE CLINIC OF LIVEBORN [place] V220 SUPERVISION 08-08-2013 UYEN MADRIGAL OF NORMAL FIRST 94920 THREATENED 07-30-2013 [facility] PREMATURE [facility] LABOR INC ANTEPARTUM 61462 OTHER 07-30-2013 HARPEL ZAIN THREATENED LABOR, ANTEPARTUM 27492 GENERALIZED 05-30-2013 [facility] ANXIETY RG DISORDER 13397 UNSPECIFIED 04-12-2013 [facility] VIRAL JAM INFECTION IN CCE & UNS SITE 477.8 477.8 04-12-2013 Vashon ALLERGIC [facility] RHINITIS Hospital NEC 4778 ALLERGIC 04-12-2013 [place] RHINITIS [facility] DUE TO INC OTHER ALLERGEN 4779 ALLERGIC 04-12-2013 [facility] RHINITIS JAM CAUSE UNSPECIFIED 790.8 790.8 04-12-2013 V[place]on VIREMIA [facility] 7908 UNSPECIFIED 04-12-2013 [place] VIREMIA [facility] INC V22.2 V22.2 PREG 04-12-2013 [facility] Hospital V222 04-12-2013 [facility] INCIDENTAL INC V283 ENCOUNTER 03-31-2013 UYEN MADRIGAL ROUTINE SCREEN MALFORMATIO N ULTRASONIC 29439 OTHER 01-06-2013 [facility] COMPLICATIO CLINIC OF N [place] ANTEPARTUM V221 [...] ia de te s n re d [place] 57 10 11 30 30 00 SD Ac RT 23 -0 -1 .0 00 L- ti AZ 70 9- 0- 00 07 MA ve AP 00 20 20 24 RT IN 83 17 17 54 E 0 40 PH 15 AR MA MG CY TA #1 BL 23 ET 4 SE 68 10 11 30 30 00 SD Ac RT 64 -0 -1 .0 00 L- ti RA 50 9- 0- 00 07 MA ve LI 52 20 20 24 RT NE 25 17 17 54 4 42 PH HC AR L MA 50 CY MG #1 23 TA 4 BL ET MO 57 10 11 30 30 00 SD Ac NT 23 -0 -1 .0 00 L- ti EL 70 9- 0- 00 07 MA ve UK 25 20 20 24 RT 53 17 17 54 T 0 39 PH SO AR D MA 10 CY MG #1 23 TA 4 BL ET CE 16 10 11 30 30 00 SD Ac TI 57 -0 -1 .0 00 L- ti RI 10 9- 0- 00 08 MA ve ZI 40 20 20 84 RT NE 25 17 17 71 0 27 PH HC AR L MA 10 CY MG #1 23 TA 4 BL ET OM 60 10 11 30 30 00 SD Ac EP 50 -0 -1 .0 00 L- ti RA 53 9- 0- 00 07 MA ve ZO 95 20 20 24 RT LE 20 17 17 [address] AR MA 20 CY MG #1 23 CA 4 PS UL E QV 59 09 10 8. 30 00 SD Ac AR 31 -1 -1 69 00 L- ti 00 1- 3- 9 07 MA ve 80 20 20 20 50 RT 41 17 17 77 MC 2 33 PH G AR OR MA AL CY IN #5 HUMPHREY 91 LE R NJ 23 09 10 60 30 00 SD Ac OP 15 -1 -1 .0 00 L- ti RA 50 1- 3- 00 07 MA ve NO 11 20 20 49 RT LO 10 17 17 81 L 1 03 PH 20 AR MA MG CY TA #5 BL 91 ET OM 60 09 10 30 30 00 SD Ac EP 50 -0 -0 .0 00 L- ti RA 53 5- 6- 00 07 MA ve ZO 95 20 20 50 RT LE 20 17 [address] AR MA 20 CY MG #5 91 CA PS UL E MO 57 09 10 30 30 00 SD Ac NT 23 -0 -0 .0 00 L- ti EL 70 5- 6- 00 07 MA ve UK 25 20 20 50 RT 53 17 17 77 T 0 28 PH SO AR D MA 10 CY MG #5 91 TA BL ET CE 16 09 10 30 30 00 SD Ac TI 57 -0 -0 .0 00 L- ti RI 10 5- 6- 00 08 MA ve ZI 40 20 20 84 RT NE 25 17 17 09 0 75 PH HC AR L MA 10 CY MG #5 91 TA BL ET AK 57 08 09 30 30 00 SD Ac RT 23 -3 -2 .0 00 L- ti AZ 70 0- 9- 00 07 MA ve AP 00 20 20 50 RT IN 83 17 17 68 E 0 06 PH 15 AR MA MG CY TA #5 BL 91 ET SE 68 08 09 30 30 00 SD Ac RT 64 -3 -2 .0 00 L- ti RA 50 0- 9- 00 07 MA ve LI 52 20 20 50 RT NE 25 17 17 68 4 05 PH HC AR L MA 50 CY MG #5 91 TA BL ET NJ 23 08 09 60 30 00 [facility] OP 15 -1 -1 .0 00 L- ti RA 50 5- 5- 00 07 MA ve NO 11 20 20 49 RT LO 10 17 17 81 L 1 03 PH 20 AR MA MG CY TA #5 BL 91 ET PO 62 08 09 51 30 00 [facility] LY 17 -1 -1 0. 00 L- ti ET 50 5- 5- 00 07 MA ve HY 44 20 20 0 50 RT LE 21 17 17 40 NE 5 88 PH AR GL MA YC CY OL #5 33 91 50 PO WD QV 59 08 09 8. 30 00 SD Ac AR 31 -1 -1 69 00 L- ti 00 5- 5- 9 07 MA ve 80 20 20 20 48 RT 41 17 17 02 MC 2 21 PH G AR OR MA AL CY IN #5 HUMPHREY 91 LE R OM 60 07 09 30 30 00 SD Ac EP 50 -3 -0 .0 00 [...] MO 57 07 09 30 30 00 SD Ac NT 23 -3 -0 .0 00 L- ti EL 70 1- 1- 00 07 MA ve UK 25 20 20 49 RT 53 17 17 20 T 0 89 PH SO AR D MA 10 CY MG #5 91 TA BL ET AM 00 07 09 20 10 00 SD Ac OX 09 -3 -0 .0 00 L- ti IC 33 1- 1- 00 07 MA ve IL 10 20 20 50 RT LI 90 17 17 15 N 5 49 PH 50 AR 0 MA MG CY CA #5 PS 91 UL E AK 57 07 09 30 30 00 SD Ac RT 23 -3 -0 .0 00 L- ti AZ 70 1- 1- 00 07 MA ve AP 00 20 20 48 RT IN 83 17 17 72 E 0 83 PH 15 AR MA MG CY TA #5 BL 91 ET OM 60 07 08 30 30 00 SD Ac EP 50 -0 -1 .0 00 L- ti RA 53 8- 1- 00 07 MA ve ZO 95 20 20 49 RT LE 20 17 17 [address] AR MA 20 CY MG #5 91 CA PS UL E NJ 23 07 08 60 30 00 SD Ac OP 15 -1 -1 .0 00 L- ti RA 50 0- 1- 00 07 MA ve NO 11 20 20 49 RT LO 10 17 17 81 L 1 03 PH 20 AR MA MG CY TA #5 BL 91 ET GA 43 06 08 40 2 00 SD Ac 38 -2 -0 00 00 L- ti LY 60 9- 4- .0 07 MA ve TE 09 20 20 00 49 RT -G 01 17 17 60 9 79 PH SO AR LATONYA MA TI CY ON #5 91 QV 59 07 08 8. 30 00 SD Ac AR 31 -0 -0 69 00 L- ti 00 4- 4- 9 07 MA ve 80 20 20 20 48 RT 41 17 17 02 MC 2 21 PH G AR OR MA AL CY IN #5 HUMPHREY 91 LE R CE 16 06 07 30 30 00 SD Ac TI 57 -2 -2 .0 00 L- ti RI 10 4- 8- 00 08 MA ve ZI 40 20 20 83 RT NE 25 17 17 88 0 47 PH HC AR L MA 10 CY MG #5 91 TA BL ET AK 57 06 07 30 30 00 WA Ac RT 23 -0 -0 .0 00 L- ti AZ 70 7- 7- 00 07 MA ve AP 00 20 20 48 RT IN 83 17 17 72 E 0 83 PH 15 AR MA MG CY TA #5 BL 91 ET MO 57 06 07 30 30 00 SD Ac NT 23 -0 -0 .0 00 L- ti EL 70 6- 7- 00 07 MA ve UK 25 20 20 49 RT 53 17 17 20 T 0 89 PH SO AR D MA 10 CY MG #5 91 TA BL ET LE 00 06 07 15 17 00 SD Ac VA 59 -0 -0 .0 00 L- ti LB 12 6- 7- 00 07 MA ve UT 92 20 20 49 RT ER 75 17 17 20 OL 4 83 PH AR TA MA R CY HF A #5 45 91 MC G IN H OM 60 06 07 30 30 00 SD Ac EP 50 -0 -0 .0 00 L- ti RA 53 6- 7- 00 07 MA ve ZO 95 20 20 49 RT LE 20 17 17 [address] AR MA 20 CY MG #5 91 CA PS UL E FL 60 06 07 16 30 00 SD Ac UT 43 -0 -0 .0 00 L- ti IC 20 6- 7- 00 07 MA ve 26 20 20 49 RT ON 41 17 17 20 E 5 86 PH NJ AR OP MA CY 50 #5 MC 91 G SP RA Y NJ 23 05 06 60 30 00 SD Ac OP 15 -1 -2 .0 00 L- ti RA 50 9- 3- 00 07 MA ve NO 11 20 20 47 RT LO 10 17 17 08 L 1 19 PH 20 AR MA MG CY TA #5 BL 91 ET QV 59 05 06 8. 30 00 SD Ac AR 31 -1 -2 69 00 L- ti 00 9- 3- 9 07 MA ve 80 20 20 20 48 RT 41 17 17 02 MC 2 21 PH G AR OR MA AL CY IN #5 HUMPHREY 91 LE R CE 16 05 06 30 30 00 SD Ac TI 57 -1 -2 .0 00 L- ti RI 10 9- 3- 00 08 MA ve ZI 40 20 20 83 RT NE 25 17 17 88 0 47 PH HC AR L MA 10 CY MG #5 91 TA BL ET AK 57 05 06 30 30 00 SD Ac RT 23 -1 -1 .0 00 L- ti AZ 70 1- 6- 00 07 MA ve AP 00 20 20 48 RT IN 83 17 17 72 E 0 83 PH 15 AR MA MG CY TA #5 BL 91 ET OM 45 05 06 60 30 00 SD Ac EP 80 -0 -0 .0 00 L- ti RA 20 9 9- 00 08 MA ve ZO 88 20 20 83 RT LE 83 17 [address] AR MA 20 CY MG #5 91 TA BL ET MO 31 05 06 30 30 00 SD Ac NT 72 -0 -0 .0 00 L- ti EL 20 3- 2- 00 07 MA ve UK 72 20 20 48 RT 61 17 17 02 T 0 19 PH SO AR D MA 10 CY MG #5 91 TA BL ET QV 59 04 05 8. 30 00 SD Ac AR 31 -1 -1 69 00 L- ti 00 8- 9- 9 07 MA ve 80 20 20 20 48 RT 41 17 17 02 MC 2 21 PH G AR OR MA AL CY IN #5 HUMPHREY 91 LE R NJ 23 04 05 60 30 00 SD Ac OP 15 -1 -1 .0 00 L- ti RA 50 8 9- 00 07 MA ve NO 11 20 20 47 RT LO 10 17 17 08 L 1 19 PH 20 AR MA MG CY TA #5 BL 91 ET CE 16 04 05 30 30 00 SD Ac TI 57 -1 -1 .0 00 L- ti RI 10 8- 9- 00 08 MA ve ZI 40 20 20 83 RT NE 25 17 17 88 0 47 PH HC AR L MA 10 CY MG #5 91 TA BL ET DI 16 04 05 30 15 00 SD Ac CL 57 -0 -0 .0 00 L- ti OF 10 2- 5- 00 07 MA ve EN 20 20 20 48 RT AC 15 17 17 00 0 51 PH SO AR D MA EC CY 75 #5 91 MG TA B BE 68 04 05 20 7 00 SD Ac NZ 38 -0 -0 .0 00 L- ti ON 20 2- 5- 07 MA ve AT 24 20 20 48 RT AT 70 17 17 00 E 1 52 PH 10 AR 0 MA MG CY CA #5 PS 91 UL E MO 54 04 05 30 30 00 SD Ac NT 45 -0 -0 .0 00 L- ti EL 80 3- 5- 00 07 MA ve UK 89 20 20 48 RT 01 17 17 02 T 0 19 PH SO AR D MA 10 CY MG #5 91 TA BL ET EP 49 04 05 2. 2 00 SD Ac IN 50 -0 -0 00 00 L- ti EP 20 4- 5- 0 07 MA ve HR 10 20 20 48 RT IN 20 17 17 02 E 2 98 PH 0. AR 3 MA MG CY AU #5 TO 91 -I NJ EC T LE 66 04 05 14 8 00 SD Ac VA 99 -0 -0 4. 00 L- ti LB 30 5- 5- 00 07 MA ve UT 02 20 20 0 48 RT ER 32 17 17 02 OL 7 20 PH AR 1. MA 25 CY MG #5 /3 91 ML SO L LE 00 04 05 15 17 00 SD Ac VA 59 -0 -0 .0 00 L- ti LB 12 3- 5- 00 07 MA ve UT 92 20 20 48 RT ER 75 17 17 02 OL 4 17 PH AR TA MA R CY HF A #5 45 91 MC G IN H [address] 00 03 04 60 30 00 SD Ac OO 53 -2 -2 .0 00 L- ti L 61 7- 8- 00 08 MA ve SO 06 20 20 83 RT FT 41 17 17 87 EN 0 16 PH ER AR MA 25 CY 0 MG #5 91 SO FT GE L NJ 23 03 04 60 30 00 SD Ac OP 15 -1 -1 .0 00 L- ti RA 50 4- 4- 00 07 MA ve NO 11 20 20 47 RT LO 10 17 17 08 L 1 19 PH 20 AR MA MG CY TA #5 BL 91 ET CE 16 03 04 30 30 00 SD Ac TI 57 -1 -1 .0 00 L- ti RI 10 4- 4- 00 08 MA ve ZI 40 20 20 83 RT NE 25 17 17 81 0 17 PH HC AR L MA 10 CY MG #5 91 TA BL ET QV 59 03 04 8. 30 00 SD Ac AR 31 -1 -1 69 00 L- ti 00 4- 4- 9 07 MA ve 80 20 20 20 47 RT 41 17 17 10 MC 2 09 PH G AR OR MA AL CY IN #5 HUMPHREY 91 LE R NJ 00 02 03 60 30 00 SD Ac OP 37 -1 -2 .0 00 L- ti RA 80 5- 4- 00 07 MA ve NO 18 20 20 47 RT LO 30 17 17 08 L 1 19 PH 20 AR MA MG CY TA #5 BL 91 ET VE 00 02 03 18 17 00 SD Ac NT 17 -1 -2 .0 00 [...] CE 16 02 03 30 30 00 SD Ac TI 57 -1 -1 .0 00 L- ti RI 10 5- 7- 00 08 MA ve ZI 40 20 20 83 RT NE 25 17 17 81 0 17 PH HC AR L MA 10 CY MG #5 91 TA BL ET NJ 23 01 02 60 30 00 SD Ac OP 15 -1 -2 .0 00 L- ti RA 50 9- 4- 00 07 MA ve NO 11 20 20 46 RT LO 10 17 17 57 L 1 61 PH 20 AR MA MG CY TA #5 BL 91 ET CE 68 01 02 21 7 00 SD Ac PH 18 -1 -1 .0 00 [...] ti ve 32 5 MG -5 MG NJ 65 09 1 No EN 16 -1 [...] Procedure DOS Code Location Performer Comment DELIVERY [id number] [facility] PRODUCTS 6 N N OF COMMUNTIY COMMUNTIY [facility] N EXTERNAL INTRODUCT [id number] [facility] ION OTH 6 N N [facility]ORM[facility] COMMUNTIY [facility]TIY [facility] VEIN PERQ REPAIR OF 7569 LIN[facility] MCKEON OTHER 3 [facility]3] OBSTETRIC LACERATIO N REPAIR OB 75.69 Davon PETERSON N NEC Encounters Encounter Start End Date Code Location Performer Type Date HOSPITAL [facility] - 7 7 N OUTPATIEN COMMUNTIY [facility] - 7 7 N OUTPATIEN COMMUNY [facility] LINDA - 7 7 [facility] - 7 7 [facility] - 7 7 [facility] - 7 7 [facility] - 7 7 [facility] - 7 7 [facility] - 7 7 [facility] - 7 7 [facility] - 6 6 N INPATIENT COMMUNTIY [facility] - 6 6 N OUTPATIEN COMMUNTIY [facility] UNIVERSIT - 6 6 Y [facility] - 6 6 N OUTPATIEN COMMUNTIY [facility] - 6 6 N OUTPATIEN COMMUNTIY [facility] - 6 6 N OUTPATIEN COMMUNTIY [facility] LINDA - 6 6 [facility] LINDA - 6 6 [facility] Emergency DANIELA Garner (ER) 3 15:35 3 17:56 [facility] LINDA - 3 3 [facility]PATIEN [facility] - 3 3 [facility] 3 3 [facility] - 3 3 [facility]EN [facility] Inpatient ELADIO Quevedo MD (IN[facility] 3 05:00 3 15:00 [facility] LINDA - 3 3 [facility] - 3 3 [facility] 3 3 [facility]PATIEN [facility] LIN[facility] - 3 3 [facility] [place]EN [facility] Emergency DANIELA FERRELL (ER[facility] 3 18:22 3 18:34 [facility] LINDA - 3 3 [facility] LIN[facility] - 3 3 [facility] [place]
[2017-10-23 01:09] VITALS: BP 124/89
--- OUTSIDE RECORDS SUMMARY | 2017-10-23 01:12 | External Medical Summary Rpt | CCD ---
Author Author , DANIEL Organization DANIEL Address Unknown Phone [email or web address] Care Team Providers Care Cleaner And Preparer Name Role Phone [facility] Unavailable Unavailable [facility], [facility] CARSON, CARSON Unavailable Unavailable [email or web address], Unavailable Unavailable [email or web address] Unavailable Unavailable SERVICE, [facility] QIU KAITLIN, QIU Unavailable Unavailable KAITLIN RIVAS ANGIE, Unavailable Unavailable [facility] AN[facility] [place] Unavailable [facility] DONOVITZ JAM, Unavailable Unavailable DONOVITZ JAM [facility], Unavailable Unavailable PLLC, [facility], [facility] Unavailable Unavailable HOSPITA, [facility] HARPEL ZAIN, HARPEL Unavailable Unavailable ZAIN [facility] Unavailable Unavailable INC, [facility] Unavailable Unavailable HOSPITAL P, [facility], Unavailable [facility]available [facility], [facility]available [facility]available [facility] Unavailable [facility] PS, [facility] Un[facility], [facility], Unavailable Unavailable [facility], Unavailable Unavailable [facility], Unavailable Unavailable PLLC, [facility], [facility]Y Unavailable Unavailable LAB, [facility] OSIRIS REMY, OSIRIS REMY Unavailable Unavailable EVELYN TOD, EVELYN TOD Unavailable Unavailable [facility], Unavailable Unavailable [facility] III JOEL, Unavailable [facility]available [facility] III JOEL [facility] Unavailable Unavailable [facility] [place], [facility] [place] Purpose Continuity of Care Document - 12-28-2012 through 2016 Problems Code Diagnosis DOS Provider [...] [facility] DISEASE [place] WITHOUT ESOPHAGITIS [id number] OTHER 08-04-2017 [facility] AD[facility]SE [facility] FOOD [place] [facility] REACTIONS NEC INITIAL ENCNTR [id number] [facility] TO 08-04-2017 [facility] OTHER FOODS [facility] [place] J029 ACUTE 06-29-2017 [facility] UNSPECIFIED X68871 UNSPECIFIED 06-01-2017 [place] [facility] UNCOMPLICAT [facility] PS ED R109 UNSPECIFIED 06-01-2017 [place]BDOMINAL [facility] PAIN GROUP PS M5386 OTHER 05-12-2017 [place] SPECIFIED [facility] DORSOPATHIE C CENTE S LUMBAR REGION M5413 RADICULOPAT 05-12-2017 [place] HY [facility] CERVICOTHOR C CENTE ACIC REGION M9906 SEGMENTAL & 05-12-2017 [place] [facility] DYSFUNCTION C CENTE LOWER EXTREMITY I10 ESSENTIAL 05-11-2017 [facility] HYPERTENSIO N I499 CARDIAC 05-11-2017 [facility] UNSPECIFIED J309 ALLERGIC 05-11-2017 [facility] UNSPECIFIED J4520 MILD 05-11-2017 [facility] T ASTHMA UNCOMPLICAT ED K649 UNSPECIFIED 05-11-2017 [facility] HEMORRHOIDS L509 URTICARIA 05-11-2017 [place] [facility]PEC[facility] R918 OTHER 05-05-2017 [facility] NONSPECIFIC PARTNERS OF ABNORMAL [place] FINDING OF LUNG FIELD R0602 SHORTNESS 04-07-2017 [facility] R079 CHEST PAIN 04-07-2017 [place] [facility] R1012 LEFT UPPER 03-20-2017 [facility]ANT PHYSICIAN PAIN GROUP R319 HEMATURIA 03-20-2017 [facility] UNSPECIFIED PHYSICIAN GROUP M549 DORSALGIA 03-18-2017 [place] UNSPECIFIED [facility]IROPRACTI C CENTE M9901 SEGMENTAL & 03-18-2017 [place] SOMATIC [facility] DYSFUNCTION C CENTE CERVICAL REGION M9905 SEGMENTAL & 03-18-2017 [facility] S[facility] CHIROPRA[facility]I DYSFUNCTION C CENTE OF PELVIC REGION X61171 OTHER 03-02-2017 [facility] K921 MELENA 02-28-2017 [facility] COUGH 02-28-2017 [facility] R0789 OTHER CHEST 02-28-2017 [facility] SERV[facility] R195 OTHER FECAL 02-28-2017 [facility] N EMERGENCY ABNORMALITI SERVI ES L298 OTHER 02-17-2017 [facility] L308 OTHER 02-17-2017 [facility] SPECIFIED [place], DERMATITIS PLLC Z452 ENCOUNTER 01-26-2017 [facility] ADJUSTMENT& [facility] MGMT INC VASCULAR ACCESS DEVICE Z4800 ENCOUNTER 01-26-2017 [facility] CHANGE/RADU [facility] SUNIL NONSURG INC WOUND DRESSING [id number] ALLERGY 01-14-2017 [facility] UNSPECIFIED INITIAL ENCOUNTER E6609 OTHER 01-13-2017 [facility] OBESITY DUE [facility] TO EXCESS INC CALORIES E669 OBESITY 01-13-2017 [facility] UNSPECIFIED PHYSICIANS GROUP R002 PALPITATION 01-13-2017 [facility] R0600 DYSPNEA 01-13-2017 [place] [facility]NSPECIFIED [facility]ICAL IMAGING ASS R9431 ABNORMAL 01-13-2017 [facility] ELECTROCARD [facility] IOGRAM INC O169 UNSPECIFIED 01-02-2017 [facility] MATERNAL PHYSICIANS HYPERTENSIO GROUP N UNS TRIMESTER R44530 ENCOUNTER 12-31-2016 [facility]OVAL SERV INTRAUTERIN FOUNDATION E CONTRACEPT DEVICE H538 OTHER 12-18-2016 [place] [facility]ANCE IMAGING [facility] S R112 NAUSEA WITH 12-18-2016 [facility] UNSPECIFIED SERVICE R42 DIZZINESS 12-18-2016 [facility] GIDDINESS [facility] R51 HEADACHE 12-18-2016 [facility] N3000 ACUTE 12-17-2016 [facility]IS [facility], WITHOUT PLLC HEMATURIA N390 URINARY 12-17-2016 [facility] TRACT PHYSICIANS, INFECTION [facility] SITE NOT SPECIFIED R000 TACHYCARDIA 12-17-2016 [facility] HOSPITAL P X58960 ENCOUNTER 10-16-2016 [facility] CHECKING IU [facility]OUNDATION CONTRACEPT DEVICE K45416 SUPERVISION 08-09-2016 [facility] O[facility] HIGH SERV RISK PREG FOUNDATION THIRD TRIMESTER O133 GESTATIONAL 08-09-2016 [facility] HTN W/O SERV SIG [facility]OUND[facility] PROTEINURIA THIRD TRI O80 ENCOUNTER 08-09-2016 [place] FOR ANESTHESIA FULL-TERM GROUP PS UNCOMPLICAT ED DELIVERY Z370 SINGLE LIVE 08-09-2016 [facility] Z3A38 38 WEEKS 08-09-2016 [facility] GESTATION SERV OF FOUNDATION I10657 SUPERVISION 08-08-2016 [facility] RISK PREG FOUNDATION UNS TRIMESTER O4703 FALSE LABOR 07-29-2016 [facility] BEFORE 37 SERV CMPLETE FOUNDATION WEEKS GEST 3RD TRI Z3A36 36 WEEKS 07-29-2016 [facility] OF [facility] O0990 SUPERVISION 07-24-2016 [facility] PREG UNS UNS TRIMESTER Z36 ENCOUNTER 07-24-2016 [facility] SCREENING OF MOTHER J50342 OTHER SPEC 07-10-2016 [facility] RELATED [facility] COND 3RD TRIMESTER R102 PELVIC AND 07-10-2016 [facility] PERINEAL SERV PAIN FOUNDATION Z3A33 33 WEEKS 07-10-2016 [facility] SERV OF FOUNDATION A86974 PRE-EXISTIN 06-23-2016 [facility] G ESSENTIAL SERV HTN COMP FOUNDATION PREG THIRD TRI Z3A31 31 WEEKS 06-23-2016 [facility] OF FOUNDATION Z3480 ENC 06-17-2016 [facility] SUPERVISION PHYSICIANS OTH NORMAL GROUP PREG UNS TRIMESTER Z3A29 29 WEEKS 06-11-2016 [facility] GESTATION COMMUNTIY OF HOSPITA V86873 ABNORMAL 05-26-2016 [facility] GLUCOSE PHYSICIANS COMPLICATIN GROUP G A42800 OTHER SPEC 05-12-2016 [facility] COND 2ND TRIMESTER R030 ELEVATED 05-12-2016 [facility] BLOOD-PRESS SERV URE READING FOUNDATION WITHOUT DX HTN Z3A25 25 WEEKS 05-12-2016 [facility] GESTATION SERV OF FOUNDATION Z3492 ENC 04-10-2016 [place] SUPERVISION MEDICAL NORMAL IMAGING ASS UNS 2 TRIMESTER Z3A20 20 WEEKS 04-10-2016 [place] GESTATION MEDICAL OF IMAGING ASS J78464 CELLULITIS 03-20-2016 [facility] OF LEFT PHYSICIANS UPPER LIMB GROUP [id number] INSECT BITE 02-11-2016 [facility] PHYSICIANS NONVENOMOUS GROUP LT UPPER ARM INITIAL ENC S15EBRJ BIT/STUNG 02-11-2016 [facility] NONVENOM PHYSICIANS INSECT OTH GROUP ARTHROPOD INIT ENC D52564 SPOTTING 01-15-2016 [facility] COMPLICATIN [facility] G INC FIRST TRIMESTER Z3201 ENCOUNTER 01-02-2016 [facility] FOR PHYSICIANS GROUP TEST RESULT POSITIVE 95213 OTHER 10-13-2013 [facility] FUNCTIONAL ANGIE DISORDERS OF INTESTINE 7862 COUGH 10-13-2013 WEHRMAN III JOEL 73051 NAUSEA 10-13-2013 WEHR[facility] III ALONE JOEL 71179 OTHER 10-13-2013 [facility] DIGESTIVE [facility] SYSTEM INC COMPLICATIO NS V4589 OTHER 10-13-2013 WEHR[facility] III POSTSURGICA JOEL L STATUS OTHER 48245 CHOLECYSTIT 10-11-2013 OSIRIS REMY IS, UNSPECIFIED 78331 CHRONIC 10-11-2013 EVELYN TOPrabhjot CHOLECYSTIT IS 5758 OTHER 09-27-2013 [facility] SPECIFIED ANGIE DISORDER OF GALLBLADDER 39221 ABDOMINAL 09-27-2013 [facility] PAIN RIGHT [facility] UPPER INC QUADRANT V2511 ENC FOR 09-27-2013 [facility] M[facility] INSERTION INTRAUTERIN E CONTRACEPT DEVICE 650 NORMAL 08-09-2013 [facility] [place] 69534 OTH&UNS CRD 08-09-2013 [facility] COMP L&D [place] DELIV 04006 SECOND-DEGR 08-09-2013 [facility] PERINEAL HEALTH LACERATION CLINIC OF WITH [place] DELIVERY V270 OUTCOME OF 08-09-2013 [facility] DELIVERY HEALTH SINGLE CLINIC OF LIVEBORN [place] V220 SUPERVISION 08-08-2013 [facility] MADRIGAL OF NORMAL FIRST 15132 THREATENED 07-30-2013 [facility] PREMATURE [facility] LABOR INC ANTEPARTUM 67611 OTHER 07-30-2013 [facility] ZAIN THREATENED LABOR, ANTEPARTUM 65637 GENERALIZED 05-30-2013 [facility] ANXIETY RG DISORDER 57257 UNSPECIFIED 04-12-2013 [facility] VIRAL JAM INFECTION IN CCE & UNS SITE 4778 ALLERGIC 04-12-2013 [facility] RH[facility]IS [facility] DUE TO INC OTHER ALLERGEN 4779 ALLERGIC 04-12-2013 [facility] RHINITIS JAM CAUSE UNSPECIFIED 7908 UNSPECIFIED 04-12-2013 [facility] VIREMIA [facility] INC V222 04-12-2013 [facility] STATE, [facility] INCIDENTAL INC V283 ENCOUNTER 03-31-2013 [facility] MADRIGAL ROUTINE SCREEN MALFORMATIO N ULTRASONIC 89038 OTHER 01-06-2013 [facility] N [place] ANTEPARTUM V221 SUPERVISION 12-28-2012 PATHOLOGY & OF OTHER CYTOLOGY NORMAL LAB V7242 12-28-2012 [facility] EXAMINATION HEALTH OR TEST CLINIC OF POSITIVE [place] RESULT Medications Na ND Rx Da Fi Fi Am Da Di Ph RX Ph St me C No te ll ll ou ys ag ar # ys at rm s nt no ma ic us Or Da si cy ia de te s n re d MT 57 10 11 30 30 00 [place] Ac RT 23 -0 -1 .0 00 L- ti AZ 70 9- 0- 00 07 MA ve AP 00 20 20 24 RT IN 83 17 17 54 E 0 40 PH 15 AR MA MG CY TA #1 BL 23 ET 4 SE 68 10 11 30 30 00 [place] Ac RT 64 -0 -1 .0 00 L- ti RA 50 9- 0- 00 07 MA ve LI 52 20 20 24 RT NE 25 17 17 54 4 42 PH HC AR L MA 50 CY MG #1 23 TA 4 BL ET MO 57 10 11 30 30 00 [place] Ac NT 23 -0 -1 .0 00 L- ti EL 70 9- 0- 00 07 MA ve UK 25 20 20 24 RT 53 17 17 54 T 0 39 PH SO AR D MA 10 CY MG #1 23 TA 4 BL ET CE 16 10 11 30 30 00 [place] Ac TI 57 -0 -1 .0 00 L- ti RI 10 9- 0- 00 08 MA ve ZI 40 20 20 84 RT NE 25 17 17 71 0 27 PH HC AR L MA 10 CY MG #1 23 TA 4 BL ET OM 60 10 11 30 30 00 [place] Ac EP 50 -0 -1 .0 00 L- ti RA 53 9- 0- 00 07 MA ve ZO 95 20 20 24 RT LE 20 17 17 [address] AR MA 20 CY MG #1 23 CA 4 PS UL E QV 59 09 10 8. 30 00 [place] Ac AR 31 -1 -1 69 00 L- ti 00 1- 3- 9 07 MA ve 80 20 20 20 50 RT 41 17 17 77 MC 2 33 PH G AR OR MA AL CY IN #5 HUMPHREY 91 LE R [place] 23 09 10 60 30 00 [place] Ac OP 15 -1 -1 .0 00 L- ti RA 50 1- 3- 00 07 MA ve NO 11 20 20 49 RT LO 10 17 17 81 L 1 03 PH 20 AR MA MG CY TA #5 BL 91 ET MO 57 09 10 30 30 00 [place] Ac NT 23 -0 -0 .0 00 L- ti EL 70 5- 6- 00 07 MA ve UK 25 20 20 50 RT 53 17 17 77 T 0 28 PH SO AR D MA 10 CY MG #5 91 TA BL ET CE 16 09 10 30 30 00 [place] Ac TI 57 -0 -0 .0 00 L- ti RI 10 5- 6- 00 08 MA ve ZI 40 20 20 84 RT NE 25 17 17 09 0 75 PH HC AR L MA 10 CY MG #5 91 TA BL ET OM 60 09 10 30 30 00 [place] Ac EP 50 -0 -0 .0 00 L- ti RA 53 5- 6- 00 07 MA ve ZO 95 20 20 50 RT LE 20 17 17 [address] AR MA 20 CY MG #5 91 CA PS UL E SE 68 08 09 30 30 00 [place] Ac RT 64 -3 -2 .0 00 L- ti RA 50 0- 9- 00 07 MA ve LI 52 20 20 50 RT NE 25 17 17 68 4 05 PH HC AR L MA 50 CY MG #5 91 TA BL ET MT 57 08 09 30 30 00 [place] Ac RT 23 -3 -2 .0 00 L- ti AZ 70 0- 9- 00 07 MA ve AP 00 20 20 50 RT IN 83 17 17 68 E 0 06 PH 15 AR MA MG CY TA #5 BL 91 ET IL 23 08 09 60 30 00 [place] Ac OP 15 -1 -1 .0 00 L- ti RA 50 5- 5- 00 07 MA ve NO 11 20 20 49 RT LO 10 17 17 81 L 1 03 PH 20 AR MA MG CY TA #5 BL 91 ET PO 62 08 09 51 30 00 [place] Ac LY 17 -1 -1 0. 00 L- ti ET 50 5- 5- 00 07 MA ve HY 44 20 20 0 50 RT LE 21 17 17 40 NE 5 88 PH AR GL MA YC CY OL #5 33 91 50 PO WD QV 59 08 09 8. 30 00 [place] Ac AR 31 -1 -1 69 00 L- ti 00 5- 5- 9 07 MA ve 80 20 20 20 48 RT 41 17 17 02 MC 2 21 PH G AR OR MA AL CY IN #5 HUMPHREY 91 LE R OM 60 07 09 30 30 00 [place] Ac EP 50 -3 -0 .0 00 L- ti RA 53 1- 1- 00 07 MA ve ZO 95 20 20 49 RT LE 20 17 17 [address] AR MA 20 CY MG #5 91 CA PS UL E CE 16 07 09 30 30 00 [place] Ac TI 57 -3 -0 .0 00 L- ti RI 10 1- 1- 00 08 MA ve ZI 40 20 20 83 RT NE 25 17 17 88 0 47 PH HC AR L MA 10 CY MG #5 91 TA BL ET MO 57 07 09 30 30 00 [place] Ac NT 23 -3 -0 .0 00 L- ti EL 70 1- 1- 00 07 MA ve UK 25 20 20 49 RT 53 17 17 20 T 0 89 PH SO AR D MA 10 CY MG #5 91 TA BL ET AM 00 07 09 20 10 00 [place] Ac OX 09 -3 -0 .0 00 L- ti IC 33 1- 1- 00 07 MA ve IL 10 20 20 50 RT LI 90 17 17 15 N 5 49 PH 50 AR 0 MA MG CY CA #5 PS 91 UL E MT 57 07 09 30 30 00 [place] Ac RT 23 -3 -0 .0 00 L- ti AZ 70 1- 1- 00 07 MA ve AP 00 20 20 48 RT IN 83 17 17 72 E 0 83 PH 15 AR MA MG CY TA #5 BL 91 ET IL 23 07 08 60 30 00 [place] Ac OP 15 -1 -1 .0 00 L- ti RA 50 0- 1- 00 07 MA ve NO 11 20 20 49 RT LO 10 17 17 81 L 1 03 PH 20 AR MA MG CY TA #5 BL 91 ET OM 60 07 08 30 30 00 [place] Ac EP 50 -0 -1 .0 00 L- ti RA 53 8- 1- 00 07 MA ve ZO 95 20 20 49 RT LE 20 17 17 [address] AR MA 20 CY MG #5 91 CA PS UL E QV 59 07 08 8. 30 00 [place] Ac AR 31 -0 -0 69 00 L- ti 00 4- 4- 9 07 MA ve 80 20 20 20 48 RT 41 17 17 02 MC 2 21 PH G AR OR MA AL CY IN #5 HUMPHREY 91 LE R GA 43 06 08 40 2 00 [place] Ac 38 -2 -0 00 00 L- ti LY 60 9- 4- .0 07 MA ve TE 09 20 20 00 49 RT -G 01 17 17 60 9 79 PH SO AR LATONYA MA TI CY ON #5 91 CE 16 06 07 30 30 00 [place] Ac TI 57 -2 -2 .0 00 L- ti RI 10 4- 8- 00 08 MA ve ZI 40 20 20 83 RT NE 25 17 17 88 0 47 PH HC AR L MA 10 CY MG #5 91 TA BL ET MT 57 06 07 30 30 00 [place] Ac RT 23 -0 -0 .0 00 L- ti AZ 70 7- 7- 00 07 MA ve AP 00 20 20 48 RT IN 83 17 17 72 E 0 83 PH 15 AR MA MG CY TA #5 BL 91 ET LE 00 06 07 15 17 00 [place] Ac VA 59 -0 -0 .0 00 L- ti LB 12 6- 7- 00 07 MA ve UT 92 20 20 49 RT ER 75 17 17 20 OL 4 83 PH AR TA MA R CY HF A #5 45 91 MC G IN H OM 60 06 07 30 30 00 [place] Ac EP 50 -0 -0 .0 00 L- ti RA 53 6- 7- 00 07 MA ve ZO 95 20 20 49 RT LE 20 17 17 [address] AR MA 20 CY MG #5 91 CA PS UL E FL 60 06 07 16 30 00 [place] Ac UT 43 -0 -0 .0 00 L- ti IC 20 6- 7- 00 07 MA ve 26 20 20 49 RT ON 41 17 17 20 E 5 86 PH IL AR OP MA CY 50 #5 MC 91 G SP RA Y MO 57 06 30 30 00 [place] Ac NT 23 -0 -0 .0 00 L- ti EL 70 6- 7- 00 07 MA ve UK 25 20 20 49 RT 53 17 17 20 T 0 89 PH SO AR D MA 10 CY MG #5 91 TA BL ET [place] 23 05 06 60 30 00 [place] Ac OP 15 -1 -2 .0 00 L- ti RA 50 9- 3- 00 07 MA ve NO 11 20 20 47 RT LO 10 17 17 08 L 1 19 PH 20 AR MA MG CY TA #5 BL 91 ET QV 59 05 06 8. 30 00 [place] Ac AR 31 -1 -2 69 00 L- ti 00 9- 3- 9 07 MA ve 80 20 20 20 48 RT 41 17 17 02 MC 2 21 PH G AR OR MA AL CY IN #5 HUMPHREY 91 LE R CE 16 05 30 30 00 [place] Ac TI 57 -1 -2 .0 00 L- ti RI 10 9- 3- 00 08 MA ve ZI 40 20 20 83 RT NE 25 17 17 88 0 47 PH HC AR L MA 10 CY MG #5 91 TA BL ET MT 57 05 06 30 30 00 [place] Ac RT 23 -1 -1 .0 00 L- ti AZ 70 1- 6- 00 07 MA ve AP 00 20 20 48 RT IN 83 17 17 72 E 0 83 PH 15 AR MA MG CY TA #5 BL 91 ET OM 45 05 06 60 30 00 [place] Ac EP 80 -0 -0 .0 00 L- ti RA 20 9- 9- 00 08 MA ve ZO 88 20 20 83 RT LE 83 17 [address] AR MA 20 CY MG #5 91 TA BL ET MO 31 05 06 30 30 00 [place] Ac NT 72 -0 -0 .0 00 L- ti EL 20 3- 2- 00 07 MA ve UK 72 20 20 48 RT 61 17 17 02 T 0 19 PH SO AR D MA 10 CY MG #5 91 TA BL ET [place] 23 04 05 60 30 00 [place] Ac OP 15 -1 -1 .0 00 L- ti RA 50 8- 9- 00 07 MA ve NO 11 20 20 47 RT LO 10 17 17 08 L 1 19 PH 20 AR MA MG CY TA #5 BL 91 ET CE 16 04 05 30 30 00 [place] Ac TI 57 -1 -1 .0 00 L- ti RI 10 8- 9- 00 08 MA ve ZI 40 20 20 83 RT NE 25 17 17 88 0 47 PH HC AR L MA 10 CY MG #5 91 TA BL ET QV 59 04 05 8. 30 00 [place] Ac AR 31 -1 -1 69 00 L- ti 00 8- 9- 9 07 MA ve 80 20 20 20 48 RT 41 17 17 02 MC 2 21 PH G AR OR MA AL CY IN #5 HUMPHREY 91 LE R LE 00 04 05 15 17 00 [place] Ac VA 59 -0 -0 .0 00 L- ti LB 12 3- 5- 00 07 MA ve UT 92 20 20 48 RT ER 75 17 17 02 OL 4 17 PH AR TA MA R CY HF A #5 45 91 MC G IN H MO 54 04 05 30 30 00 [place] Ac NT 45 -0 -0 .0 00 L- ti EL 80 3- 5- 00 07 MA ve UK 89 20 20 48 RT 01 17 17 02 T 0 19 PH SO AR D MA 10 CY MG #5 91 TA BL ET EP 49 04 05 2. 2 00 [place] Ac IN 50 -0 -0 00 00 L- ti EP 20 4- 5- 0 07 MA ve HR 10 20 20 48 RT IN 20 17 17 02 E 2 98 PH 0. AR 3 MA MG CY AU #5 TO 91 -I [place] EC T LE 66 04 05 14 8 00 [place] Ac VA 99 -0 -0 4. 00 L- ti LB 30 5- 5- 00 07 MA ve UT 02 20 20 0 48 RT ER 32 17 17 02 OL 7 20 PH AR 1. MA 25 CY MG #5 /3 91 ML SO L DI 16 04 05 30 15 00 [place] Ac CL 57 -0 -0 .0 00 L- ti OF 10 2- 5- 00 07 MA ve EN 20 20 20 48 RT AC 15 17 17 00 0 51 PH SO AR D MA EC CY 75 #5 91 MG TA B BE 68 04 05 20 7 00 [place] Ac NZ 38 -0 -0 .0 00 L- ti ON 20 2- 5- 00 07 MA ve AT 24 20 20 48 RT AT 70 17 17 00 E 1 52 PH 10 AR 0 MA MG CY CA #[address] 00 03 04 60 30 00 [place] Ac OO 53 -2 -2 .0 00 L- ti L 61 7- 8- 00 08 MA ve SO 06 20 20 83 RT FT 41 17 17 87 EN 0 16 PH ER AR MA 25 CY 0 MG #5 91 SO FT GE L QV 59 03 04 8. 30 00 [place] Ac AR 31 -1 -1 69 00 L- ti 00 4- 4- 9 07 MA ve 80 20 20 20 47 RT 41 17 17 10 MC 2 09 PH G AR OR MA AL CY IN #5 HUMPHREY 91 LE R CE 16 03 04 30 30 00 [place] Ac TI 57 -1 -1 .0 00 L- ti RI 10 4- 4- 00 08 MA ve ZI 40 20 20 83 RT NE 25 17 17 81 0 17 PH HC AR L MA 10 CY MG #5 91 TA BL ET [place] 23 03 04 60 30 00 [place] Ac OP 15 -1 -1 .0 00 L- ti RA 50 4- 4- 00 07 MA ve NO 11 20 20 47 RT LO 10 17 17 08 L 1 19 PH 20 AR MA MG CY TA #5 BL 91 ET VE 00 02 03 18 17 00 [place] Ac NT 17 -1 -2 .0 00 L- ti OL 30 6- 4- 00 07 MA ve IN 68 20 20 47 RT 22 17 17 10 HF 0 98 PH A AR 90 MA CY MC G #5 IN 91 HUMPHREY LE R [place] 00 02 03 60 30 00 [place] Ac OP 37 -1 -2 .0 00 L- ti RA 80 5- 4- 00 07 MA ve NO 18 20 20 47 RT LO 30 17 17 08 L 1 19 PH 20 AR MA MG CY TA #5 BL 91 ET QV 59 02 03 8. 30 00 [place] Ac AR 31 -1 -1 69 00 L- ti 00 5- 7- 9 07 MA ve 80 20 20 20 47 RT 41 17 17 10 MC 2 09 PH G AR OR MA AL CY IN #5 HUMPHREY 91 LE R CE 16 02 03 30 30 00 [place] Ac TI 57 -1 -1 .0 00 L- ti RI 10 5- 7- 00 08 MA ve ZI 40 20 20 83 RT NE 25 17 17 81 0 17 PH HC AR L MA 10 CY MG #5 91 TA BL ET [place] 23 01 02 60 30 00 [place] Ac OP 15 -1 -2 .0 00 L- ti RA 50 9- 4- 00 07 MA ve NO 11 20 20 46 RT LO 10 17 17 57 L 1 61 PH 20 AR MA MG CY TA #5 BL 91 ET CE 68 01 02 21 7 00 [place] Ac PH 18 -1 -1 .0 00 L- ti AL 00 8 7- 00 07 MA ve EX 12 20 20 46 RT IN 20 17 17 55 2 70 PH 50 AR 0 MA MG CY CA #5 PS 91 UL E Procedures Procedure DOS Code Location Performer Comment DELIVERY [id number] [facility] PRODUCTS 6 N N OF COMMUNTIY COMMUNTIY [facility] HOSPITA N EXTERNAL INTRODUCT [id number] [facility] ION OTH 6 N N HORMONE COMMUNTIY COMMUNTIY PERIPHERA HOSPITA [place] 7569 [facility] OTHER 3 [facility] OBSTETRIC LACERATIO N Encounters Encounter Start End Date Code Location Performer Type Date HOSPITAL [facility] - [address] [facility] [facility] - 7 N OUTPATIEN COMMUNTIST[facility] - 7 7 [facility] - 7 7 [facility] - 7 7 [facility] - 7 7 [facility] - 7 7 [facility] - 7 7 [facility] - 7 7 [facility] - 7 [facility] - 6 6 N INPATIENT [facility] - 6 6 N OUTPATIEN [facility] - 6 6 [facility] - 6 6 N OUTPATIEN [facility] - 6 6 N OUTPATIEN [facility] - 6 6 N OUTPATIEN [facility] - 6 6 [facility] - 3 3 [facility] - 3 3 [facility] - 3 3 [facility]PATI[facility] - 3 3 [facility]PATI[facility] - 3 3 [facility]PATIENT [facility] - 3 3 [facility]PATI[facility] - 3 3 [facility] - 3 3 [facility] - 3 3 [facility] - 3 3 [facility]
--- OUTSIDE RECORDS SUMMARY | 2017-10-23 01:12 | External Medical Summary Rpt | CCD ---
Author Author , DANIEL Organization DANIEL Address Unknown Phone [email or web address] Care Team Providers Care Anesthesiologist Attending Name Role Phone [facility] Unavailable Unavailable [facility], [facility] CARSON, CARSON Unavailable Unavailable [email or web address], Unavailable Unavailable [email or web address] [facility] Unavailable Unavailable SERVICE, [facility] QIU KAITLIN, QIU Unavailable Unavailable KA[facility] RIVAS ANGIE, Unavailable Unavailable RIVAS ANGIE [place] Unavailable [facility] [facility] DONOVITZ JAM, Unavailable Unavailable DONOVITZ JAM [facility], Unavailable Unavailable PLLC, [facility], [facility] Unavailable [facility]available HOSPITA, [facility] HARPEL ZAIN, HARPEL Unavailable Unavailable ZAIN [facility] Unavailable Unavailable INC, [facility] Unavailable Unavailable HOSPITAL P, [facility], [facility]available Unavailable [facility], Unavailable Unavailable [facility] Unavailable GROUP PS, [facility] Unavailable Unavailable [facility], [facility], Unavailable Unavailable [facility], [facility], Unavailable Unavailable [facility], Unavailable Unavailable PLLC, [facility], [facility] Unavailable Unavailable LAB, [facility]Y [facility] LAB OSIRIS REMY, OSIRIS REMY Unavailable Unavailable EVELYN TOD, EVELYN TOD Unavailable [facility]available [facility], Unavailable Unavailable [facility] [place] III JOEL, Unavailable Unavailable [facility] III JOEL [facility] Unavailable Unavailable OF [place], [facility] [...] [facility] DISEASE [place] [place] WITHOUT ESOPHAGITIS [id number] OTHER 08-04-2017 [facility]SE [facility] FOOD [place] REACTIONS NEC INITIAL ENCNTR R50031 [facility] TO 08-04-2017 [facility] OTHER FOODS [facility] [place] J029 ACUTE 06-29-2017 [facility] PHARYNGITIS PHYSICIAN GROUP UNSPECIFIED [id number] UNSPECIFIED 06-01-2017 [place] [facility]MA [facility] UNCOMPLICAT GROUP PS ED R109 UNSPECIFIED 06-01-2017 [place] ABDOMINAL ANESTHESIA PAIN GROUP PS M5386 OTHER 05-12-2017 [place] SPECIFIED [facility] DORSOPATHIE C CENTE S LUMBAR REGION M5413 RADICULOPAT 05-12-2017 [place] HY [facility] CERVICOTHOR C CENTE ACIC REGION M9906 SEGMENTAL & 05-12-2017 [place] [facility]IC [facility] DYSFUNCTION C CENTE LOWER EXTREMITY I10 ESSENTIAL 05-11-2017 [place] [facility] HYPERTENSIO N I499 CARDIAC 05-11-2017 [place] [facility]THMIA [facility] UNSPECIFIED J309 ALLERGIC 05-11-2017 [place] [facility]IS [facility] UNSPECIFIED J4520 MILD 05-11-2017 [place] [facility]EN [facility] T ASTHMA UNCOMPLICAT ED K649 UNSPECIFIED 05-11-2017 [facility] HEMORRHOIDS L509 URTICARIA 05-11-2017 [place] UNSPECIFIED [facility] R918 OTHER 05-05-2017 [facility] NONSPECIFIC PARTNERS OF ABNORMAL [place] FINDING OF LUNG FIELD R0602 SHORTNESS 04-07-2017 [facility] R079 CHEST PAIN 04-07-2017 [place] [facility]PEC[facility] SERV [facility] R1012 LEFT UPPER 03-20-2017 [facility] QUADRANT PHYSICIAN PAIN GROUP R319 HEMATURIA 03-20-2017 [facility] UNSPECIFIED PHYSICIAN GROUP M549 DORSALGIA 03-18-2017 [place] UNSPECIFIED [facility]OPRACTI C CENTE M9901 SEGMENTAL & 03-18-2017 [place] SOMATIC [facility] DYSFUNCTION C CENTE CERVICAL REGION M9905 SEGMENTAL & 03-18-2017 [facility] SOMATIC [facility]IROPRA[facility] DYSFUNCTION C CENTE OF PELVIC REGION T04711 OTHER 03-02-2017 [facility] K921 MELENA 02-28-2017 [facility] R05 COUGH 02-28-2017 [facility] R0789 OTHER CHEST 02-28-2017 [facility] R195 OTHER FECAL 02-28-2017 [facility] N EMERGENCY ABNORMALITI SERVI ES L298 OTHER 02-17-2017 [facility] L308 OTHER 02-17-2017 [facility] SPECIFIED [place], DERMATITIS PLLC Z452 ENCOUNTER 01-26-2017 [facility] ADJUSTMENT& [facility] MGMT INC VASCULAR ACCESS DEVICE Z4800 ENCOUNTER 01-26-2017 [facility] CHANGE/RADU [facility] SUNIL NONSURG INC WOUND DRESSING [id number] ALLERGY 01-14-2017 [facility] UNSPECIFIED INITIAL ENCOUNTER E6609 OTHER 01-13-2017 [facility] OBESITY DUE [facility] TO EXCESS INC CALORIES E669 OBESITY 01-13-2017 [facility] UNSPECIFIED PHYSICIANS GROUP R002 PALPITATION 01-13-2017 [place] S [facility] R0600 DYSPNEA 01-13-2017 [place] UNSPECIFIED MEDICAL IMAGING ASS R9431 ABNORMAL 01-13-2017 [facility] ELECTROCARD [facility] IOGRAM INC O169 UNSPECIFIED 01-02-2017 [facility] MATERNAL PHYSICIANS HYPERTENSIO GROUP N UNS TRIMESTER N70547 ENCOUNTER 12-31-2016 [facility] INTRAUTERIN FOUNDATION E CONTRACEPT DEVICE H538 OTHER 12-18-2016 [place] VISUAL [facility]ICAL DISTURBANCE IMAGING ASS S R112 NAUSEA WITH 12-18-2016 [facility] UNSPECIFIED SERVICE R42 DIZZINESS 12-18-2016 [facility] GIDDINESS [facility] R51 HEADACHE 12-18-2016 [facility] N3000 ACUTE 12-17-2016 [facility] CY[facility]IS [facility]ANS, WITHOUT PLLC HEMATURIA N390 URINARY 12-17-2016 [facility] TRACT PHYSICIANS, INFECTION [facility] SITE NOT SPECIFIED R000 TACHYCARDIA 12-17-2016 [facility] P T62702 ENCOUNTER 10-16-2016 [facility] CHECKING IU [facility]OUND[facility] CONTRACEPT DEVICE M06355 SUPERVISION 08-09-2016 [facility] HIGH SERV RISK PREG FOUNDATION THIRD TRIMESTER O133 GESTATIONAL 08-09-2016 [facility] HTN W/O SERV SIG [facility] PROTEINURIA THIRD TRI O80 ENCOUNTER 08-09-2016 [place] FOR ANESTHESIA FULL-TERM GROUP PS UNCOMPLICAT ED DELIVERY Z370 SINGLE LIVE 08-09-2016 [facility] Z3A38 38 WEEKS 08-09-2016 [facility] GE[facility] SERV OF FOUNDATION R63053 SUPERVISION 08-08-2016 [facility] RISK PREG [facility]OUNDATION UNS TRIMESTER O4703 FALSE LABOR 07-29-2016 [facility] BEFORE 37 SERV CMPLETE FOUNDATION WEEKS GEST 3RD TRI Z3A36 36 WEEKS 07-29-2016 [facility] OF [facility] O0990 SUPERVISION 07-24-2016 [facility] PREG UNS UNS TRIMESTER Z36 ENCOUNTER 07-24-2016 [facility] SCREENING OF MOTHER U85486 OTHER SPEC 07-10-2016 [facility] RELATED [facility] COND 3RD TRIMESTER R102 PELVIC AND 07-10-2016 [facility] PERINEAL SERV PAIN FOUND[facility] Z3A33 33 WEEKS 07-10-2016 [facility] SERV OF FOUNDATION Q55815 PRE-EXISTIN 06-23-2016 [facility] G ESSENTIAL SERV HTN COMP FOUNDATION PREG THIRD TRI Z3A31 31 WEEKS 06-23-2016 [facility] OF [facility]OUNDATION Z3480 ENC 06-17-2016 [facility] SUPERVISION PHYSICIANS OTH NORMAL GROUP PREG UNS TRIMESTER Z3A29 29 WEEKS 06-11-2016 [facility] GESTATION COMMUNTIY OF HOSPITA Q22785 ABNORMAL 05-26-2016 [facility] GLUCOSE PHYSICIANS COMPLICATIN GROUP G T88914 OTHER SPEC 05-12-2016 [facility] COND 2ND TRIMESTER R030 ELEVATED 05-12-2016 [facility] BLOOD-PRESS SERV URE READING FOUNDATION WITHOUT DX HTN Z3A25 25 WEEKS 05-12-2016 [facility] SERV OF FOUNDATION Z3492 ENC 04-10-2016 [place] SUPERVISION MEDICAL NORMAL IMAGING ASS UNS 2 TRIMESTER Z3A20 20 WEEKS 04-10-2016 [place] GESTATION MEDICAL OF IMAGING ASS O24693 CELLULITIS 03-20-2016 [facility] OF LEFT PHYSICIANS UPPER LIMB GROUP C47934V INSECT BITE 02-11-2016 [facility] PHYSICIANS NONVENOMOUS GROUP LT UPPER ARM INITIAL ENC M04KPIS BIT/STUNG 02-11-2016 [facility] NONVENOM PHYSICIANS INSECT OTH GROUP ARTHROPOD INIT ENC D03635 SPOTTING 01-15-2016 [facility] COMPLICATIN [facility] G INC FIRST TRIMESTER Z3201 ENCOUNTER 01-02-2016 [facility] FOR PHYSICIANS GROUP TEST RESULT POSITIVE 99263 OTHER 10-13-2013 R[facility] FUNCTIONAL ANGIE DISORDERS OF INTESTINE 7862 COUGH 10-13-2013 WE[facility] III JOEL 56303 NAUSEA 10-13-2013 [facility] III ALONE JOEL 54974 OTHER 10-13-2013 [facility] DIGESTIVE [facility] SYSTEM INC COMPLICATIO NS V4589 OTHER 10-13-2013 [facility] III POSTSURGICA JOEL L STATUS OTHER 13932 CHOLECYSTIT 10-11-2013 OSIRIS REMY IS, UNSPECIFIED 73338 CHRONIC 10-11-2013 EVELYN TOPrabhjot CHOLECYSTIT IS 5758 OTHER 09-27-2013 [facility] SPECIFIED ANGIE DISORDER OF GALLBLADDER 28892 ABDOMINAL 09-27-2013 [facility] PAIN RIGHT [facility] UPPER INC QUADRANT V2511 ENC FOR 09-27-2013 [facility] MADRIGAL INSERTION INTRAUTERIN E CONTRACEPT DEVICE 650 NORMAL 08-09-2013 [facility] [place] 14084 OTH&UNS CRD 08-09-2013 [facility] COMP L&D [place] DELIV 47873 SECOND-DEGR 08-09-2013 [facility] PERINEAL HEALTH LACERATION CLINIC OF WITH [place] DELIVERY V270 OUTCOME OF 08-09-2013 [facility] DELIVERY [facility]LE CLIN[facility] OF LIVEBORN [place] V220 SUPERVISION 08-08-2013 U[facility] MADRIGAL OF NORMAL FIRST 63929 THREATENED 07-30-2013 [facility] PREMATURE [facility] LABOR INC ANTEPARTUM 69862 OTHER 07-30-2013 [facility] ZAIN THREATENED LABOR, ANTEPARTUM 52647 GENERALIZED 05-30-2013 [facility] ANXIETY RG DISORDER 19087 UNSPECIFIED 04-12-2013 [facility] VIRAL JAM INFECTION IN CCE & UNS SITE 4778 ALLERGIC 04-12-2013 [facility] RHINITIS [facility] DUE TO INC OTHER ALLERGEN 4779 ALLERGIC 04-12-2013 DON[facility] RHINITIS JAM CAUSE UNSPECIFIED 7908 UNSPECIFIED 04-12-2013 [facility] VIREMIA [facility] INC V222 04-12-2013 [facility] STATE, [facility] INCIDENTAL INC V283 ENCOUNTER 03-31-2013 [facility] MADRIGAL ROUTINE SCREEN MALFORMATIO N ULTRASONIC 48686 OTHER 01-06-2013 [facility] SYSTEMED HEALTH COMPLICATIO CLINIC OF N [place] ANTEPARTUM [...] ia de te s n re d CO 57 10 11 30 30 00 MA Ac RT 23 -0 -1 .0 00 L- ti AZ 70 9- 0- 00 07 MA ve AP 00 20 20 24 RT IN 83 17 17 54 E 0 40 PH 15 AR MA MG CY TA #1 BL 23 ET 4 SE 68 10 11 30 30 00 MA Ac RT 64 -0 -1 .0 00 L- ti RA 50 9- 0- 00 07 MA ve LI 52 20 20 24 RT NE 25 17 17 54 4 42 PH HC AR L MA 50 CY MG #1 23 TA 4 BL ET MO 57 10 11 30 30 00 MA Ac NT 23 -0 -1 .0 00 L- ti EL 70 9- 0- 00 07 MA ve UK 25 20 20 24 RT 53 17 17 54 T 0 39 PH SO AR D MA 10 CY MG #1 23 TA 4 BL ET CE 16 10 11 30 30 00 MA Ac TI 57 -0 -1 .0 00 L- ti RI 10 9- 0- 00 08 MA ve ZI 40 20 20 84 RT NE 25 17 17 71 0 27 PH HC AR L MA 10 CY MG #1 23 TA 4 BL ET OM 60 10 11 30 30 00 MA Ac EP 50 -0 -1 .0 00 L- ti RA 53 9- 0- 00 07 MA ve ZO 95 20 20 24 RT LE 20 17 17 [address] AR MA 20 CY MG #1 23 CA 4 PS UL E QV 59 09 10 8. 30 00 MA Ac AR 31 -1 -1 69 00 L- ti 00 1- 3- 9 07 MA ve 80 20 20 20 50 RT 41 17 17 77 MC 2 33 PH G AR OR MA AL CY IN #5 HUMPHREY 91 LE R NV 23 09 10 60 30 00 MA Ac OP 15 -1 -1 .0 00 L- ti RA 50 1- 3- 00 07 MA ve NO 11 20 20 49 RT LO 10 17 17 81 L 1 03 PH 20 AR MA MG CY TA #5 BL 91 ET MO 57 09 10 30 30 00 MA Ac NT 23 -0 -0 .0 00 L- ti EL 70 5- 6- 00 07 MA ve UK 25 20 20 50 RT 53 17 17 77 T 0 28 PH SO AR D MA 10 CY MG #5 91 TA BL ET CE 16 09 10 30 30 00 MA Ac TI 57 -0 -0 .0 00 L- ti RI 10 5- 6- 00 08 MA ve ZI 40 20 20 84 RT NE 25 17 17 09 0 75 PH HC AR L MA 10 CY MG #5 91 TA BL ET OM 60 09 10 30 30 00 MA Ac EP 50 -0 -0 .0 00 L- ti RA 53 5- 6- 00 07 MA ve ZO 95 20 20 50 RT LE 20 17 [address] AR MA 20 CY MG #5 91 CA PS UL E SE 68 08 09 30 30 00 MA Ac RT 64 -3 -2 .0 00 L- ti RA 50 0- 9- 00 07 MA ve LI 52 20 20 50 RT NE 25 17 17 68 4 05 PH HC AR L MA 50 CY MG #5 91 TA BL ET CO 57 08 09 30 30 00 MA Ac RT 23 -3 -2 .0 00 L- ti AZ 70 0- 9- 00 07 MA ve AP 00 20 20 50 RT IN 83 17 17 68 E 0 06 PH 15 AR MA MG CY TA #5 BL 91 ET NV 23 08 09 60 30 00 MA Ac OP 15 -1 -1 .0 00 L- ti RA 50 5- 5- 00 07 MA ve NO 11 20 20 49 RT LO 10 17 17 81 L 1 03 PH 20 AR MA MG CY TA #5 BL 91 ET PO 62 08 09 51 30 00 MA Ac LY 17 -1 -1 0. 00 L- ti ET 50 5- 5- 00 07 MA ve HY 44 20 20 0 50 RT LE 21 17 17 40 NE 5 88 PH AR GL MA YC CY OL #5 33 91 50 PO WD QV 59 08 09 8. 30 00 MA Ac AR 31 -1 -1 69 00 L- ti 00 5- 5- 9 07 MA ve 80 20 20 20 48 RT 41 17 17 02 MC 2 21 PH G AR OR MA AL CY IN #5 HUMPHREY 91 LE R OM 60 07 09 30 30 00 MA Ac EP 50 -3 -0 .0 00 L- ti RA 53 1- 1- 00 07 MA ve ZO 95 20 20 49 RT LE 20 17 17 [address] AR MA 20 CY MG #5 91 CA PS UL E CE 16 07 09 30 30 00 MA Ac TI 57 -3 -0 .0 00 L- ti RI 10 1- 1- 00 08 MA ve ZI 40 20 20 83 RT NE 25 17 17 88 0 47 PH HC AR L MA 10 CY MG #5 91 TA BL ET MO 57 07 09 30 30 00 MA Ac NT 23 -3 -0 .0 00 L- ti EL 70 1- 1- 00 07 MA ve UK 25 20 20 49 RT 53 17 17 20 T 0 89 PH SO AR D MA 10 CY MG #5 91 TA BL ET AM 00 07 09 20 10 00 MA Ac OX 09 -3 -0 .0 00 L- ti IC 33 1- 1- 00 07 MA ve IL 10 20 20 50 RT LI 90 17 17 15 N 5 49 PH 50 AR 0 MA MG CY CA #5 PS 91 UL E CO 57 07 09 30 30 00 MA Ac RT 23 -3 -0 .0 00 L- ti AZ 70 1- 1- 00 07 MA ve AP 00 20 20 48 RT IN 83 17 17 72 E 0 83 PH 15 AR MA MG CY TA #5 BL 91 ET NV 23 07 08 60 30 00 MA Ac OP 15 -1 -1 .0 00 L- ti RA 50 0- 1- 00 07 MA ve NO 11 20 20 49 RT LO 10 17 17 81 L 1 03 PH 20 AR MA MG CY TA #5 BL 91 ET OM 60 07 08 30 30 00 MA Ac EP 50 -0 -1 .0 00 L- ti RA 53 8- 1- 00 07 MA ve ZO 95 20 20 49 RT LE 20 17 17 [address] AR MA 20 CY MG #5 91 CA PS UL E QV 59 07 08 8. 30 00 MA Ac AR 31 -0 -0 69 00 L- ti 00 4- 4- 9 07 MA ve 80 20 20 20 48 RT 41 17 17 02 MC 2 21 PH G AR OR MA AL CY IN #5 HUMPHREY 91 LE R GA 43 06 08 40 2 00 MA Ac 38 -2 -0 00 00 L- ti LY 60 9- 4- .0 07 MA ve TE 09 20 20 00 49 RT -G 01 17 17 60 9 79 PH SO AR LATONYA MA TI CY ON #5 91 CE 16 06 07 30 30 00 MA Ac TI 57 -2 -2 .0 00 L- ti RI 10 4- 8- 00 08 MA ve ZI 40 20 20 83 RT NE 25 17 17 88 0 47 PH HC AR L MA 10 CY MG #5 91 TA BL ET CO 57 06 07 30 30 00 MA Ac RT 23 -0 -0 .0 00 L- ti AZ 70 7- 7- 00 07 MA ve AP 00 20 20 48 RT IN 83 17 17 72 E 0 83 PH 15 AR MA MG CY TA #5 BL 91 ET LE 00 06 07 15 17 00 MA Ac VA 59 -0 -0 .0 00 L- ti LB 12 6- 7- 00 07 MA ve UT 92 20 20 49 RT ER 75 17 17 20 OL 4 83 PH AR TA MA R CY HF A #5 45 91 MC G IN H OM 60 06 07 30 30 00 MA Ac EP 50 -0 -0 .0 00 L- ti RA 53 6- 7- 00 07 MA ve ZO 95 20 20 49 RT LE 20 17 17 [address] AR MA 20 CY MG #5 91 CA PS UL E FL 60 06 07 16 30 00 MA Ac UT 43 -0 -0 .0 00 L- ti IC 20 6- 7- 00 07 MA ve 26 20 20 49 RT ON 41 17 17 20 E 5 86 PH NV AR OP MA CY 50 #5 MC 91 G SP RA Y MO 57 06 30 30 00 MA Ac NT 23 -0 -0 .0 00 L- ti EL 70 6- 7- 00 07 MA ve UK 25 20 20 49 RT 53 17 17 20 T 0 89 PH SO AR D MA 10 CY MG #5 91 TA BL ET NV 23 05 06 60 30 00 MA Ac OP 15 -1 -2 .0 00 L- ti RA 50 9- 3- 00 07 MA ve NO 11 20 20 47 RT LO 10 17 17 08 L 1 19 PH 20 AR MA MG CY TA #5 BL 91 ET QV 59 05 06 8. 30 00 MA Ac AR 31 -1 -2 69 00 L- ti 00 9- 3- 9 07 MA ve 80 20 20 20 48 RT 41 17 17 02 MC 2 21 PH G AR OR MA AL CY IN #5 HUMPHREY 91 LE R CE 16 05 30 30 00 MA Ac TI 57 -1 -2 .0 00 L- ti RI 10 9- 3- 00 08 MA ve ZI 40 20 20 83 RT NE 25 17 17 88 0 47 PH HC AR L MA 10 CY MG #5 91 TA BL ET CO 57 05 06 30 30 00 MA Ac RT 23 -1 -1 .0 00 L- ti AZ 70 1- 6- 00 07 MA ve AP 00 20 20 48 RT IN 83 17 17 72 E 0 83 PH 15 AR MA MG CY TA #5 BL 91 ET OM 45 05 06 60 30 00 MA Ac EP 80 -0 -0 .0 00 L- ti RA 20 9- 9- 00 08 MA ve ZO 88 20 20 83 RT LE 83 17 [address] AR MA 20 CY MG #5 91 TA BL ET MO 31 05 06 30 30 00 MA Ac NT 72 -0 -0 .0 00 L- ti EL 20 3- 2- 00 07 MA ve UK 72 20 20 48 RT 61 17 17 02 T 0 19 PH SO AR D MA 10 CY MG #5 91 TA BL ET NV 23 04 05 60 30 00 MA Ac OP 15 -1 -1 .0 00 L- ti RA 50 8- 9- 00 07 MA ve NO 11 20 20 47 RT LO 10 17 17 08 L 1 19 PH 20 AR MA MG CY TA #5 BL 91 ET CE 16 04 05 30 30 00 MA Ac TI 57 -1 -1 .0 00 L- ti RI 10 8- 9- 00 08 MA ve ZI 40 20 20 83 RT NE 25 17 17 88 0 47 PH HC AR L MA 10 CY MG #5 91 TA BL ET QV 59 04 05 8. 30 00 MA Ac AR 31 -1 -1 69 00 L- ti 00 8- 9- 9 07 MA ve 80 20 20 20 48 RT 41 17 17 02 MC 2 21 PH G AR OR MA AL CY IN #5 HUMPHREY 91 LE R LE 00 04 05 15 17 00 MA Ac VA 59 -0 -0 .0 00 L- ti LB 12 3- 5- 00 07 MA ve UT 92 20 20 48 RT ER 75 17 17 02 OL 4 17 PH AR TA MA R CY HF A #5 45 91 MC G IN H MO 54 04 05 30 30 00 MA Ac NT 45 -0 -0 .0 00 L- ti EL 80 3- 5- 00 07 MA ve UK 89 20 20 48 RT 01 17 17 02 T 0 19 PH SO AR D MA 10 CY MG #5 91 TA BL ET EP 49 04 05 2. 2 00 MA Ac IN 50 -0 -0 00 00 L- ti EP 20 4- 5- 0 07 MA ve HR 10 20 20 48 RT IN 20 17 17 02 E 2 98 PH 0. AR 3 MA MG CY AU #5 TO 91 -I NJ EC T LE 66 04 05 14 8 00 MA Ac VA 99 -0 -0 4. 00 L- ti LB 30 5- 5- 00 07 MA ve UT 02 20 20 0 48 RT ER 32 17 17 02 OL 7 20 PH AR 1. MA 25 CY MG #5 /3 91 ML SO L DI 16 04 05 30 15 00 MA Ac CL 57 -0 -0 .0 00 L- ti OF 10 2- 5- 00 07 MA ve EN 20 20 20 48 RT AC 15 17 17 00 0 51 PH SO AR D MA EC CY 75 #5 91 MG TA B BE 68 04 05 20 7 00 MA Ac NZ 38 -0 -0 .0 00 L- ti ON 20 2- 5- 00 07 MA ve AT 24 20 20 48 RT AT 70 17 17 00 E 1 52 PH 10 AR 0 MA MG CY CA #[address] 00 03 04 60 30 00 MA Ac OO 53 -2 -2 .0 00 L- ti L 61 7- 8- 00 08 MA ve SO 06 20 20 83 RT FT 41 17 17 87 EN 0 16 PH ER AR MA 25 CY 0 MG #5 91 SO FT GE L QV 59 03 04 8. 30 00 MA Ac AR 31 -1 -1 69 00 L- ti 00 4- 4- 9 07 MA ve 80 20 20 20 47 RT 41 17 17 10 MC 2 09 PH G AR OR MA AL CY IN #5 HUMPRHEY 91 LE R CE 16 03 04 30 30 00 MA Ac TI 57 -1 -1 .0 00 L- ti RI 10 4- 4- 00 08 MA ve ZI 40 20 20 83 RT NE 25 17 17 81 0 17 PH HC AR L MA 10 CY MG #5 91 TA BL ET NV 23 03 04 60 30 00 MA Ac OP 15 -1 -1 .0 00 L- ti RA 50 4- 4- 00 07 MA ve NO 11 20 20 47 RT LO 10 17 17 08 L 1 19 PH 20 AR MA MG CY TA #5 BL 91 ET VE 00 02 03 18 17 00 MA Ac NT 17 -1 -2 .0 00 L- ti OL 30 6- 4- 00 07 MA ve IN 68 20 20 47 RT 22 17 17 10 HF 0 98 PH A AR 90 MA CY MC G #5 IN 91 HUMPHREY LE R NV 00 02 03 60 30 00 MA Ac OP 37 -1 -2 .0 00 [...] CE 16 02 03 30 30 00 MA Ac TI 57 -1 -1 .0 00 L- ti RI 10 5- 7- 00 08 MA ve ZI 40 20 20 83 RT NE 25 17 17 81 0 17 PH HC AR L MA 10 CY MG #5 91 TA BL ET NV 23 01 02 60 30 00 MA Ac OP 15 -1 -2 .0 00 L- ti RA 50 9- 4- 00 07 MA ve NO 11 20 20 46 RT LO 10 17 17 57 L 1 61 PH 20 AR MA MG CY TA #5 BL 91 ET CE 68 01 02 21 7 00 MA Ac PH 18 -1 -1 .0 00 L- ti AL 00 8 7- 00 07 MA ve EX 12 20 20 46 RT IN 20 17 17 55 2 70 PH 50 AR 0 MA MG CY CA #5 PS 91 UL E Procedures Procedure DOS Code Location Performer Comment DELIVERY [id number] [facility] PRODUCTS 6 N N OF COMMUNTIY COMMUNTIY [facility] HOSPITA N EXTERNAL INTRODUCT [id number] [facility] ION OTH 6 N N [facility] COMMUNTIY COMMUNTIY [facility] [place] RE[place] 75[address] [facility] [place] OTHER 3 [facility] OBSTETRIC LACERATIO N Encounters Encounter Start End Date Code Location Performer Type Date [facility] - 7 N OUTPATIEN COMMUNTIY [facility] - 7 [facility] - [facility] - 7 7 [facility] - 7 7 [facility] - 7 7 [facility] - 7 7 [facility] - 7 7 [facility] - 6 6 N [facility]PAT[facility] - 6 6 N OUTPATIEN [facility] - 6 6 Y [facility] - 6 6 N OUTPATIEN [facility] - 6 6 N OUTPATIEN [facility] - 6 6 N OUTPATIEN [facility] - 6 6 [facility] - 6 6 [facility] - 3 3 [facility] - 3 3 [facility]PATI[facility] - 3 3 [facility]PATI[facility] - 3 3 [facility]PATIEN [facility] - 3 3 [facility] INPATIENT [facility] - 3 3 [facility]PATIEN [facility] - 3 3 [facility]PATI[facility] - 3 3 [facility] - 3 3 [facility] - 3 3 [facility]
--- OUTSIDE RECORDS SUMMARY | 2017-10-23 01:13 | External Medical Summary Rpt ---
Author Author DANIEL Salcido, [employer]ANIEL [employer] Organization [employer] Address Unknown Phone Unavailable Results CHLAMYDIA AND GONORRHEA TESTING Observa Value Referen Units Interpr Notes Date tion ce etation Range COLLECT NA No No No No Nov 05 OR informa informa informa informa 2011 tion in tion in tion in tion in 8:12 AM source source source source data data data data ETHNICI WHITE, No No No No Nov 05 TY NON-HIS informa informa informa informa 2011 PANIC tion in tion in tion in tion in 8:12 AM source source source source data data data data [id number] No No No No Nov 05 EXPIRAT 2 informa informa informa informa 2011 ION tion in tion in tion in tion in 8:12 AM DATE source source source source data data data data SYMPTOM NO No No No No Nov 05 S informa informa informa informa 2011 tion in tion in tion in tion in 8:12 AM source source source source data data data data REASON INITIAL No No No No Nov 05 FOR FAMILY informa informa informa informa 2011 REQUEST tion in tion in tion in tion in 8:12 AM PLANNIN source source source source G VISIT data data data data SPECIME FEMALE No No No No Nov 05 N ENDOCER informa informa informa informa 2011 SOURCE VICAL tion in tion in tion in tion in 8:12 AM source source source source data data data data PREGNAN NO No No No No Nov 05 T informa informa informa informa 2011 tion in tion in tion in tion in 8:12 AM source source source source data data data data CHART NA No No No No Nov 05 NUMBER informa informa informa informa 2011 tion in tion in tion in tion in 8:12 AM source source source source data data data data Chlamyd NEGATIV No No No NEGATIV Nov 05 ia E informa informa informa E 2011 trachom tion in tion in tion in RESULT= 8:12 AM atis source source source WITHIN rRNA data data data NORMAL [Presen ce] in LIMITSP Unspeci OSITIVE fied specime RESULT= n by Probe & ABNORMA target LEQUIVO AURELIA amplifi RESULT= cation method INDETER MINATEU NSATISF ACTORY RESULT= INVALID Neisser NEGATIV No No No NEGATIV Nov 05 ia E informa informa informa E 2011 gonorrh tion in tion in tion in RESULT= 8:12 AM oeae source source source WITHIN rRNA data data data NORMAL [Presen ce] in LIMITSP Unspeci OSITIVE fied specime RESULT= n by Probe & ABNORMA target LEQUIVO AURELIA amplifi RESULT= cation method INDETER MINATEU NSATISF ACTORY RESULT= INVALID EFFECTI VE NOVEMBE R [id number]: THE APTIMA COMBO 2 NUCLEIC ACIDAMP LIFICAT ION ASSAY IS NOT INTENDE D FOR THE EVALUAT ION OFSUSPE CTED SEXUAL ABUSE OR FOR OTHER MEDICO- LEGAL INDICAT IONS.FA LSE POSITIV E RESULTS ARE POSSIBL E.\.br\ This report contain s patient informa tion that must be protect ed in accorda nce with the Health Ins[employer] ce Portabi lity and Account ability Act. CHLAMYDIA AND GONORRHEA TESTING Observa Value Referen Units Interpr Notes Date tion ce etation Range COLLECT NA No No No No Nov 05 OR informa informa informa informa 2011 tion in tion in tion in tion in 8:12 AM source source source source data data data data ETHNICI WHITE, No No No No Nov 05 TY NON-HIS informa informa informa informa 2011 PANIC tion in tion in tion in tion in 8:12 AM source source source source data data data data KIT [id number] No No No No Nov 05 EXPIRAT 2 informa informa informa informa 2011 ION tion in tion in tion in tion in 8:12 AM DATE source source source source data data data data SYMPTOM NO No No No No Nov 05 S informa informa informa informa 2011 tion in tion in tion in tion in 8:12 AM source source source source data data data data REASON INITIAL No No No No Nov 05 FOR FAMILY informa informa informa informa 2011 REQUEST tion in tion in tion in tion in 8:12 AM PLANNIN source source source source G VISIT data data data data SPECIME FEMALE No No No No Nov 05 N ENDOCER informa informa informa informa 2011 SOURCE VICAL tion in tion in tion in tion in 8:12 AM source source source source data data data data PREGNAN NO No No No No Nov 05 T informa informa informa informa 2011 tion in tion in tion in tion in 8:12 AM source source source source data data data data CHART NA No No No No Nov 05 NUMBER informa informa informa informa 2011 tion in tion in tion in tion in 8:12 AM source source source source data data data data Chlamyd Pending No No No No Nov 05 ia informa informa informa informa 2011 trachom tion in tion in tion in tion in 8:12 AM atis source source source source rRNA data data data data [Presen ce] in Unspeci fied specime n by Probe & target amplifi cation method Neisser Pending No No No \.br\Nov 05 ia informa informa informa is 2011 gonorrh tion in tion in tion in report 8:12 AM oeae source source source contain rRNA data data data s [Presen patient ce] in Unspeci informa fied tion specime that n by must be Probe & target protect ed in amplifi accorda cation nce method with the Health Ins[employer] ce Portabi lity and Account ability Act.
--- OUTSIDE RECORDS SUMMARY | 2017-10-23 01:13 | External Medical Summary Rpt | CCD ---
Demographics Preferred Language Vietnamese Marital Status Unknown Roman Catholic Affiliation Unknown Race Unknown Ethnic Group Unknown Author Author , DANIEL SANCHEZ Address Unknown Phone Immunization Unable to retrieve immunization data due to connection failure with Immunization Registry. Please try again later.
--- OUTSIDE RECORDS SUMMARY | 2017-10-23 01:13 | External Medical Summary Rpt | CCD ---
Demographics Preferred Language Kyr[place] Marital Status Unknown Judaism Affiliation Unknown Race Unknown Ethnic Group Unknown Author Author , DANIEL SANCHEZ Address Unknown Phone Immunization Unable to retrieve immunization data due to connection failure with Immunization Registry. Please try again later.
== END 2017-10-23 01:09 | disposition home or self-care (01) ==
LOC: ER 00:39
DX: B08.4 Enteroviral vesicular stomatitis with exanthem (principal)